=== PATIENT | male | born 1965 | race Hispanic/Latino ===

== ENCOUNTER 2016-12-26 05:22 | Emergency (ER) | payer MEDICAID ==
[2016-12-26 05:24] VITALS: BMI 23.4
--- NOTE | 2016-12-26 05:42 | C.PDOC ---
History Of Present Illness Patient BIBA for evaluation. He has no physical complaints at this time, and denies drug/alcohol use today. Time Seen by Provider: 12/26/16 05:35 Chief Complaint (Nursing): Medical Clearance History Per: Patient, EMS History/Exam Limitations: no limitations Past Medical History Reviewed: Historical Data, Nursing Documentation, Vital Signs Vital Signs: Last Vital Signs Temp 97.8 F 12/26/16 05:40 Pulse 92 H 12/26/16 09:04 Resp 20 12/26/16 09:04 BP 132/87 12/26/16 09:04 Pulse Ox 98 01/10/17 08:10 - Medical History PMH: Arthritis, Asthma, Back Problems, COPD, Dementia, Depression, Fractures, HTN, Hypothyroidism, Paranoia, Schizophrenia, Seizures Surgical History: Back Surgery (2010, spinal surgery) - [facility] Procedures ALCOHOL DETOXIFICATION (11/17/14) INJECT/INFUSE NEC (01/09/15) PSYCHIA INTERV/EVAL NEC (02/25/14) TETANUS TOXOID ADMINIST (12/18/14) VENOUS CATHETERIZATION NEC (11/29/14) Family History: States: No Known Family Hx - Social History Hx Tobacco Use: Yes Hx Alcohol Use: Yes Hx Substance Use: No - Immunization History Hx Tetanus Toxoid Vaccination: Yes (12/18/14) Hx Influenza Vaccination: No Hx Pneumococcal Vaccination: No Review Of Systems Except As Marked, All Systems Reviewed And Found Negative. Constitutional: Negative for: Fever, Chills Cardiovascular: Negative for: Chest Pain Respiratory: Negative for: Shortness of Breath Gastrointestinal: Negative for: Nausea, Vomiting, Abdominal Pain, Diarrhea Physical Exam - Physical Exam Appears: Non-toxic, No Acute Distress, Unkempt Head: Normacephalic Eye(s): bilateral: Normal Inspection Oral Mucosa: Moist Cardiovascular: Rhythm Regular Respiratory: Normal Breath Sounds, No Rales, No Rhonchi, No Wheezing Neurological/Psych: Oriented x3 ED Course And Treatment O2 Sat by Pulse Oximetry: 98 (RA) Pulse Ox Interpretation: Normal Progress Note: Patient has complaints, and his wheelchair was brought to ED by EMS. He is AAOx3. Patient will be discharged at this time. Disposition Counseled Patient/Family Regarding: Diagnosis, Need For Followup - Disposition Referrals: [facility] at [facility] [Outside] Disposition: HOME/ ROUTINE Disposition Time: 06:00 Condition: STABLE Print Language: LIBERIAN - POA Present On Arrival: None - Clinical Impression Clinical Impression: Homeless
[2016-12-26 05:46] VITALS: PULSE 92; RESP 20; TEMP 97.8; O2SAT 98
[2016-12-26 09:06] VITALS: BP 132/87
== END 2016-12-26 09:05 | disposition home or self-care (01) ==
LOC: C.ER 05:22
DX: Z04.8 Encounter for examination and observation for other specified reasons (principal); F10.129 Alcohol abuse with intoxication, unspecified; Y90.9 Presence of alcohol in blood, level not specified; Z76.5 Malingerer [conscious simulation]; Z59.0 Homelessness

== ENCOUNTER 2016-12-27 17:37 | Inpatient (IN) | payer MEDICAID ==
[2016-12-27 17:38] VITALS: BMI 23.4
--- NOTE | 2016-12-27 18:27 | C.PDOC ---
History Of Present Illness 54 y/o male well known to ED< just discharged one hour ago, kobe from [facility]. per triage, pt was being unruly. pt sts he was brought here because too cold out side. pt denies any physical complaints at this time. (Gila Khanna) Time Seen by Provider: 12/27/16 17:49 Chief Complaint (Nursing): Medical Clearance Past Medical History Reviewed: Historical Data, Nursing Documentation, Vital Signs - Medical History PMH: Arthritis, Asthma, Back Problems, COPD, Dementia, Depression, Fractures, HTN, Hypothyroidism, Paranoia, Schizophrenia, Seizures Denies: Chronic Kidney Disease Surgical History: Back Surgery (2011, spinal surgery) Family History: States: Unknown Family Hx - Social History Hx Tobacco Use: Yes Hx Alcohol Use: Yes Hx Substance Use: No - Immunization History Hx Tetanus Toxoid Vaccination: Yes (12/18/14) Hx Influenza Vaccination: No Hx Pneumococcal Vaccination: No Vital Signs: Last Vital Signs Temp 98.1 F 12/27/16 18:04 Pulse 81 12/28/16 01:35 Resp 20 12/28/16 01:35 BP 141/61 12/28/16 01:35 Pulse Ox 97 12/28/16 01:35 - [facility] Procedures ALCOHOL DETOXIFICATION (11/17/14) INJECT/INFUSE NEC (01/09/15) PSYCHIA INTERV/EVAL NEC (02/25/14) TETANUS TOXOID ADMINIST (12/18/14) VENOUS CATHETERIZATION NEC (11/29/14) Review Of Systems Constitutional: Negative for: Fever, Chills Cardiovascular: Negative for: Chest Pain, Palpitations Respiratory: Negative for: Cough, Shortness of Breath Gastrointestinal: Negative for: Nausea, Vomiting, Abdominal Pain, Diarrhea Genitourinary: Negative for: Dysuria, Frequency, Incontinence Skin: Negative for: Rash Neurological: Negative for: Weakness, Numbness Physical Exam - Physical Exam Appears: Non-toxic, No Acute Distress Skin: Normal Color, Warm, Dry Head: Atraumatic, Normacephalic Eye(s): bilateral: Normal Inspection Lips: Normal Appearing Neck: Normal Chest: Symmetrical, No Deformity, No Tenderness Cardiovascular: Rhythm Regular, No Murmur Respiratory: Normal Breath Sounds, No Rales, No Rhonchi, No Wheezing Gastrointestinal/Abdominal: Bowel Sounds, Soft, No Tenderness Extremity: Bilateral: No Pedal Edema, Normal Color And Temperature Neurological/Psych: Oriented x3, Normal Speech, Normal Cognition, Normal Motor, Normal Sensation ED Course And Treatment O2 Sat by Pulse Oximetry: 100 Medical Decision Making Medical Decision Making: pt bp is 88/61, pt not lightheaded or dizzy, bundled under several blankets, shouting when they are removed. in no distress, alert, awake and coherent. ( Gila Kahnna) Disposition - Disposition Disposition Time: 18:42 - Disposition Condition: STABLE - Clinical Impression Clinical Impression: Homeless Physician Patient Turnover Patient Signed Over To: Garrett Cantu Addendum Addendum: 12/28/16 01:45 vitals stable, no complaints (Garrett Cantu)
[2016-12-28 17:02] LABS: BASO % 0.3 % (0.0-2.0); EOS # 0.2 K/uL (0.0-0.7); EOS % 2.6 % (0.0-4.0); HEMATOCRIT 36.3 % (35.0-51.0); LYMPH # 1.3 K/uL (1.0-4.3); MEAN CELL VOLUME 87.3 fL (80.0-94.0); MEAN CORPUSCULAR HEMOGLOBIN 29.8 pg (27.0-31.0); MEAN CORPUSCULAR HGB CONC 34.2 g/dL (33.0-37.0); MEAN PLATELET VOLUME 6.9 fL (7.2-11.7); MONO # 0.5 K/uL (0.0-0.8); MONO % 7.3 % (0.0-10.0); NRBC % 0.1 % (0.0-2.0); RED CELL DISTRIBUTION WIDTH 13.8 % (11.5-14.5); WHITE BLOOD COUNT 6.7 K/uL (4.8-10.8)
[2016-12-28 17:12] LABS: CHLORIDE 94 mmol/L (98-107); POTASSIUM 3.8 mmol/L (3.6-5.2); SODIUM 135 mmol/L (132-148)
[2016-12-28 17:14] LABS: ALB/GLOB RATIO 1.1 (1.0-2.1); ALKALINE PHOSPHATASE 88 U/L (38-126); AST/SGOT 16 U/L (17-59); BILIRUBIN,TOTAL 0.4 mg/dL (0.2-1.3); CARBON DIOXIDE 29 mmol/L (22-30); GFR AFRICAN-AMERICAN > 60; TOTAL PROTEIN 6.6 g/dL (6.3-8.3)
[2016-12-28 17:15] LABS: ALT/SGPT 29 U/L (21-72); BLOOD UREA NITROGEN 11 mg/dL (9-20); CALCIUM 8.4 mg/dl (8.6-10.4); GLUCOSE,RANDOM 98 mg/dL (75-110); MAGNESIUM 1.7 mg/dL (1.6-2.3); PHOSPHOROUS 4.1 mg/dL (2.5-4.5)
[2016-12-28 17:45] LABS: THYROID STIMULATING HORMONE 0.94 mIU/L (0.46-4.68)
[2016-12-28 17:57] LABS: RBC URINE 1 /hpf (0-3); URINE BILIRUBIN NEGATIVE (NEGATIVE); URINE BLOOD NEGATIVE (NEGATIVE); URINE COLOR Yellow (YELLOW); URINE GLUCOSE (UA) NORMAL (Normal); URINE KETONE NEGATIVE (NEGATIVE); URINE LEUKOCYTE ESTERASE NEG Leu/uL (Negative); URINE PROTEIN NEGATIVE (NEGATIVE); WBC URINE 6 /hpf (0-5)
--- NOTE | 2016-12-28 19:02 | CT ---
EXAM: CT Head Without Intravenous Contrast. CLINICAL HISTORY: 51 years old, male; Pain; Headache; Headache not specified; Additional info: HX ETOH, not walking TECHNIQUE: Axial computed tomography images of the head/brain without intravenous contrast. This CT exam was performed using one or more of the following dose reduction techniques: automated exposure control, adjustment of the mA and/or kV according to patient size, and/or use of iterative reconstruction technique. EXAM DATE/TIME: 12/28/2016 4:48 PM COMPARISON: CT - HEAD W/O CONTRAST 12/04/2015 3:11:34 PM FINDINGS: Brain: There is dilatation of sulci gyri and ventricles. There is no midline shift. There is decreased attenuation in periventricular white matter. There are no focal masses. There are no focal hemorrhages. There is encephalomalacia in the occipital lobes bilaterally. 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 There is right frontotemporal dural thickening, unchanged. Ivey-white differentiation is visualized. Ventricles: See above Bones/joints: Bones: There is an old right frontotemporal craniotomy. Soft tissues: unremarkable Sinuses: There is ethmoid and sphenoid sinusitis. There is mucoperiosteal thickening in the left maxillary sinus.. Mastoid air cells: Ears and mastoids: Mastoids are poorly pneumatized. No ears are unremarkable. Orbits: Orbital contents are unremarkable. 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
--- NOTE | 2016-12-28 19:18 | CT ---
EXAM: CT Lumbar Spine Without Intravenous Contrast. CLINICAL HISTORY: 51 years old, male; Pain; Low back pain; Additional info: Urinary incontinence, not walking TECHNIQUE: Axial computed tomography images of the lumbar spine without intravenous contrast. This CT exam was performed using one or more of the following dose reduction techniques: automated exposure control, adjustment of the mA and/or kV according to patient size, and/or use of iterative reconstruction technique. Coronal and sagittal reformatted images were created and reviewed. COMPARISON: There are no prior studies for comparison. Exam Date/Time: 12/28/2016 4:49 PM FINDINGS: Vertebrae: 5 lumbar vertebral bodies are normal in height and alignment. There are no vertebral body or posterior element fractures. There is mild narrowing of the T12-L1 disc space posteriorly with mild disc bulging. Remaining lumbar disc spaces are normal in height. There is minimal disc space calcification L1-2, L3-4 and L4-5. There are small Schmorl's nodes at multiple levels. There are small degenerative osteophytes at multiple levels.Spinous processes align in the expected fashion. Facet joints align anatomically. There is mild osteopenia Sacrum/coccyx: Sacrum is intact. Sacroiliac joints are patent. Discs/spinal canal/neural foramina: See above Soft tissues: Psoas and paraspinous muscles are symmetric. Vasculature: There are vascular calcifications. IMPRESSION: Osteopenia and degenerative change, no fracture
--- NOTE | 2016-12-28 19:32 | CT ---
EXAM: CT Thoracic Spine Without Intravenous Contrast. CLINICAL HISTORY: 51 years old, male; Pain; Pain in thoracic spine; Other: Not specified; Additional info: Back pain, HX prior spinal SX, trouble walking TECHNIQUE: Axial computed tomography images of the thoracic spine without intravenous contrast. This CT exam was performed using one or more of the following dose reduction techniques: automated exposure control, adjustment of the mA and/or kV according to patient size, and/or use of iterative reconstruction technique. Coronal and sagittal reformatted images were created and reviewed. EXAM DATE/TIME: 12/28/2016 5:22 PM COMPARISON: Prior images are not available for review. FINDINGS: Vertebrae: T1-T7 vertebral bodies are normal in height. There is narrowing of the T1/T2 disc space with vertebral body fusion. There is facet joint fusion T1/T2. There is mild narrowing of the disc spaces T2/T3 to T6/T7. There is mild superior endplate deformity at T5 and T6. There is compression fracture at T8 with vertebral body wedging. There are no retropulsed fragments. Posterior elements are intact. There is deformity of the T78 disc space. There is posterior disc space narrowing T8/T9. T9 and T10 are normal in height. There is wedge compression fracture at T11. There is deformity of the T10/T11 disc space. T11/T12 disc space is mildly narrowed posteriorly. There is minimal retropulsion. Posterior arch is intact. T12 and L1 vertebral bodies are normal in height. Posterior elements are intact. Facet joints align anatomically. Spinous processes align in the expected fashion. There are small Schmorl's nodes at multiple levels. Bony structures are osteopenic. Discs/spinal canal/neural foramina: See above Soft tissues: There are mild atelectatic changes in visualized portions of the lungs. Heart cannot be adequately evaluated. Paraspinous soft tissues are unremarkable. Other findings: There is mild gibbus deformity. IMPRESSION: Compression fractures T8 and T11, age indeterminate; minimal endplate deformity T5 and T6; T1/2 fusion
--- NOTE | 2016-12-28 20:04 | CT ---
EXAM: CT Cervical Spine Without Intravenous Contrast. CLINICAL HISTORY: 51 years old, male; Pain; Neck pain; Additional info: Neck pain, HX spinal SX TECHNIQUE: Axial computed tomography images of the cervical spine without intravenous contrast. This CT exam was performed using one or more of the following dose reduction techniques: automated exposure control, adjustment of the mA and/or kV according to patient size, and/or use of iterative reconstruction technique. Coronal and sagittal reformatted images were created and reviewed. EXAM DATE/TIME: 12/28/2016 5:22 PM COMPARISON: CT - CERVICAL SPINE W/O CON 12/18/2014 3:52:14 PM FINDINGS: Artifacts: Motion artifact degrades image quality. Vertebrae: There is reversal of the cervical lordosis with marked exaggeration of the reversed curve. There is no prevertebral soft tissue swelling. There is absence of the posterior arch of C1. There is narrowing of the predental space. There is fusion of the C2 and C3 vertebral bodies. There is narrowing of the C3-4 disc space. There is mild wedging C4 and C5 with anterior disc space narrowing. There are bridging osteophytes C4/C5/C6. There is posterior fusion C4/C5/C6 C7, T1, T2, T3 and T4 are normal in height. There is fusion of the T1-2 vertebral bodies and facet joints. Discs/spinal canal/neural foramina: See above. Soft tissues: See above. Hypopharynx: Hypopharynx is markedly distended. Subglottic trachea is normal in caliber. Thyroid: Thyroid is unremarkable Lung apices: Lung apices are clear Other findings: Bony structures are osteopenic. IMPRESSION: Degenerative and postsurgical change, no acute osseous abnormality
[2016-12-29 07:06] VITALS: RESP 20
--- NOTE | 2016-12-29 12:54 | CP.PCM.HP ---
<Jorgito Arce - Last Filed: 12/29/16 16:44> History of Present Illness - History of Present Illness History of Present Illness: This is a 51 yo M with PMH of arthritis, chronic back pain and alcoholism that presented to the ED with a chief complaint of being too cold. Pt is well known to the ED. Pt states that he is handicapped from his chronic back issues as well and is not able to walk on his own. He says that he feels very unstable on his feet. This back pain is not a new issue. He has no other complaints. He states his last drink was about 2 days ago. He denies any current withdrawal symptoms. Denies fevers, chills, chest pain, palpitations, nausea, vomiting, numbness or tingling. PMD: none PMH: arthritis, chronic back pain, Etoh abuse PSH: back surgery Home meds: none Allergies: NKDA FH: denies SH: admits to tobacco use and Etoh abuse, denies any other drugs Present on Admission - Present on Admission Any Indicators Present on Admission: No Review of Systems - Constitutional Constitutional: absent: Chills, Fever - Cardiovascular Cardiovascular: absent: Chest Pain, Palpitations - Respiratory Respiratory: absent: Cough, Dyspnea - Gastrointestinal Gastrointestinal: absent: Abdominal Pain, Nausea, Vomiting - Genitourinary Genitourinary: absent: Urinary Frequency, Urinary Urgency - Musculoskeletal Musculoskeletal: Muscle Weakness. absent: Muscle Cramps - Integumentary Integumentary: absent: Pruritus, Rash - Neurological Neurological: absent: Numbness, Tingling Past Patient History - Infectious Disease Hx of Infectious Diseases: None - Tetanus Immunizations Tetanus Immunization: Unknown - Past Medical History & Family History Past Medical History?: Yes - Past Social History Smoking Status: Light Smoker < 10 Cigarettes Daily - CARDIAC Hx Hypertension: Yes - PULMONARY Hx Asthma: Yes Hx Chronic Obstructive Pulmonary Disease (COPD): Yes - NEUROLOGICAL Hx Dementia: Yes Hx Seizures: Yes - HEENT Hx HEENT Problems: No - RENAL Hx Chronic Kidney Disease: No - ENDOCRINE/METABOLIC Hx Hypothyroidism: Yes - HEMATOLOGICAL/ONCOLOGICAL Hx Cancer: No - INTEGUMENTARY Hx Dermatological Problems: Yes Other/Comment: Scab formation on scalp - MUSCULOSKELETAL/RHEUMATOLOGICAL Hx Arthritis: Yes Hx Fractures: Yes - GASTROINTESTINAL Hx Gastrointestinal Disorders: No - GENITOURINARY/GYNECOLOGICAL Hx Genitourinary Disorders: Yes Hx Incontinence: Yes - PSYCHIATRIC Hx Depression: Yes Hx Paranoia: Yes Hx Schizophrenia: Yes Hx Substance Use: No - SURGICAL HISTORY Hx Surgeries: Yes - ANESTHESIA Hx Anesthesia: Yes Hx Anesthesia Reactions: No Meds Allergies/Adverse Reactions: Allergies Allergy/AdvReac Type Severity Reaction Status Date / Time No Known Allergies Allergy Verified 12/26/16 17:41 Physical Exam - Constitutional Appears: Non-toxic, Chronically Ill - Head Exam Head Exam: ATRAUMATIC, NORMOCEPHALIC - Eye Exam Eye Exam: Normal appearance Pupil Exam: PERRL - ENT Exam ENT Exam: Mucous Membranes Moist - Respiratory Exam Respiratory Exam: Clear to Auscultation Bilateral, NORMAL BREATHING PATTERN - Cardiovascular Exam Cardiovascular Exam: +S1, +S2 - GI/Abdominal Exam GI & Abdominal Exam: Normal Bowel Sounds, Soft - Extremities Exam Extremities exam: Positive for: normal capillary refill, normal inspection - Back Exam Back exam: NORMAL INSPECTION - Neurological Exam Neurological exam: Alert, Oriented x3 - Skin Skin Exam: Dry, Warm Results - Vital Signs Recent Vital Signs: Last Vital Signs Temp 97.9 F 12/29/16 06:30 Pulse 78 12/29/16 06:30 Resp 20 12/29/16 06:30 BP 113/66 12/29/16 06:30 Pulse Ox 100 12/29/16 06:30 - Labs Result Diagrams: 12/28/16 16:58 12/28/16 16:58 Assessment & Plan - Assessment and Plan (Free Text) Assessment: This is a 51 yo M with unsteady gait due to chronic back problems Plan: Unsteady gait - needs walker at baseline - CT of head, cervical, thoracic and lumbar spine (12/28) - no acute findings - PT/OT eval and treat - jail eval Dementia - possibly Etoh abuse related - Psych (Dat) consulted for competency assessment - help appreciated PPx - Lovenox for DVT ppx - Protonix for GI ppx <Shannon Grider V - Last Filed: 12/30/16 07:59> Results - Vital Signs Recent Vital Signs: Last Vital Signs Temp 98.3 F 12/29/16 18:11 Pulse 76 12/29/16 18:11 Resp 20 12/29/16 18:11 BP 105/68 12/29/16 18:11 Pulse Ox 99 12/29/16 18:11 - Labs Result Diagrams: 12/28/16 16:58 12/28/16 16:58 Assessment & Plan (1) Gait instability Status: Acute Comment: PT/OT eval. Wheelchair bound. TSH: normal (2) Homeless Status: Chronic Comment: Patient reports he was cold and lives out on the streets (3) Alcohol use Status: Chronic Comment: Prior hx of alcohol use noted in EMR record. Patient has no tremors, no convulsion at bedside. (4) Encounter for competency evaluation Status: Acute Comment: Psych (Dr. Daugherty)- consulted and seen patient in the ED. Patient has insight and is psychiatrically stable for discharge (5) Prophylactic measure Status: Acute Comment: Lovenox 40mg subq daily. Protonix 40mg IV q daily. NS 100cc/hr for mainteance fluids. Case management on the case for placement. PT/OT eval. Patient is bedbound and wheelchair bound. Discussed with wound care nurse given mild erythema noted over buttock area - Assessment and Plan (Free Text) Assessment: This is late computer entry for 12/29/16. Patient seen in [facility] in the ED on 12/30/15. Patient seen and case discussed with day-time resident. Patient will not allow me to do a full physical examination. However, from what I can assess he is an unkempt gentleman, speaks in lithuanian, lung sound: good air exchange and heart: S1,S2 regular rate and rhythm, right upper extremity is mild contracted and distort which may reports he "broke" his upper extremity "long long time ago" (patient had a CT of that extremity in December 2016 which shows no fracture but dislocation), erythema located around gluteal which appear superifical, no observed edema, poor hygiene in general; smelled like urine in the room. This is a social admission. patient has history of gait dysfunction, requiring wheelchair, and is bed bound. Patient is homeless. Patient is requesting for jail placement, which is the first time he is asking and has allowed blood work; per ED staff, he usually does not. Patient has history of alcohol use, depression, malingering, and multiple psych disorders as review of EMR. Psych (Dr. Daugherty) consulted on the case; patient is psychiatrically stable for discharge. Wound care is consulted for erythema over back side. Patient labs appear normal and vitals are stable. Patient does not appear to be actively withdrawing and no visible tremors suggestive of acute alcohol use. PT/OT eval placed Patient ordered for maintenance IV fluids, GI ppx, and DVT ppx. Patient is awaiting placement. Case management already on board. Discussed case with Dr. Mcdaniel, ED, Dr. Emmanuel, ED, Case management, and Dr. Camacho, Director. Attending/Attestation - Attestation I have personally seen and examined this patient.: Yes I have fully participated in the care of the patient.: Yes I have reviewed all pertinent clinical information: Yes
--- NOTE | 2016-12-29 13:04 | PCM.PSYCH ---
Initial Psychiatric Evaluation - Initial Psychiatric Evaluation Type of Admission: Voluntary Legal Status: Capacity Chief Complaint (in patient's own words): I came to get help History of Present Illness and Precipitating Events: This is a 51 year-old male who is currently homeless and unemployed with a long history of alcohol dependence was consulted because of history of alcohol abuse. Patient states that he has a long history of drinking. Since past few months he is drinking heavily. The patient reports of drinking 1-3 pints of vodka, and few beers on a daily basis. Yesterday he consumed 1-3 16oz beers, started becoming anxious, so came to the hospital to get help. Patient reports of anxiety, irritability and agitation but denies any withdrawal symptoms. Patient denies any feelings of hopelessness or helplessness and denies any suicidal ideation or homicidal ideation. He denies any racing of thoughts or flight of ideas. He also denies any auditory or visual hallucinations or any psychotic symptoms. Denies any other substance abuse. Past medical history None Current Medications: Active Medications Generic Name Dose Route Start Last Admin Trade Name Freq PRN Reason Stop Dose Admin Enoxaparin Sodium 40 mg 12/30/16 10:00 Lovenox SC DAILY DION Sodium Chloride 1,000 mls @ 100 mls/hr 12/29/16 12:45 Sodium Chloride 0.9% IV .Q10H DION Pantoprazole Sodium 40 mg 12/30/16 10:00 Protonix Inj IVP DAILY DION Past Psychiatric History - Past Psychiatric History Previous Treatment History: None Pertinent Medical Hx (Current Medical&Sleep Prob, Allergies): Allergies Allergy/AdvReac Type Severity Reaction Status Date / Time No Known Allergies Allergy Verified 12/26/16 17:41 No Known Home Med 02/18/16 Review of Systems - Review of Systems All systems: reviewed and no additional remarkable complaints except - Psychiatric Psychiatric: Anxiety, Irritability Mental Status Examination - Personal Presentation Personal Presentation: Looks stated age - Affect Affect: Constricted - Motor Activity Motor Activity: Calm - Reliability in Providing Information Reliability in Providing Information: Good - Speech Speech: Organized - Mood Mood: Anxious - Formal Thought Process Formal Thought Process: No Impairment - Obsessions/Compulsions Obsessions: No Compulsions: No - Cognitive Functions Orientation: Person, Place, Situation, Time Sensorium: Alert Attention/Concentration: Attentive Abstract Thinking: [place] Estimate of Intelligence: Below average Judgement: Imparied, as evidence by: Poor judgement, Intact, as evidence by: Insight regarding need for hospitalization - Risk Risk: Diminished functioning - Strength & Assets Inventory Strength & Assets Inventory: Life experience - Limitations Limitations: Living alone DSM 5 DX - DSM 5 DSM 5 Diagnosis: Alcohol use disorder severe - Recommended/Plan of Treatment Treatment Recommendations and Plan of Treatment: Alcohol use disorder severe Patient is psychiatrically stable to be discharged - Smoking Cessation Smoking Cessation Initiated: No
[2016-12-29] MEDS: Sodium Chloride 0.9% 1,000 ML IV SCH (17:57)
[2016-12-30] MEDS: Enoxaparin 40 mg Syringe SC SCH (09:34)
[2016-12-30] MEDS: Sodium Chloride 0.9% 1,000 ML IV SCH ×2 (09:35→18:45)
--- NOTE | 2016-12-30 14:12 | CP.PCM.PN ---
<Jorgito Arce - Last Filed: 12/30/16 14:03> Subjective - Date & Time of Evaluation Date of Evaluation: 12/30/16 Time of Evaluation: 14:03 - Subjective Subjective: PGY-1 note for medicine service Pt seen and examined at bedside. Pt observed to be resting comfortably. Pt refused physical exam. Objective - Vital Signs/Intake and Output Vital Signs (last 24 hours): Temp Pulse Resp BP Pulse Ox 98.1 F 71 20 106/62 97 12/30/16 00:00 12/30/16 00:00 12/30/16 00:00 12/30/16 00:00 12/30/16 00:00 Intake and Output: 12/30/16 12/30/16 06:59 18:59 Intake Total 300 Balance 300 - Medications Medications: Current Medications Enoxaparin Sodium (Lovenox) 40 mg SC DAILY [facility] Last Admin: 12/30/16 09:34 Dose: Not Given Sodium Chloride (Sodium Chloride 0.9%) 1,000 mls @ 100 mls/hr IV .Q10H [facility] Last Admin: 12/30/16 09:35 Dose: Not Given Influenza Virus Vaccine (Afluria) 45 mcg IM .ONCE ONE Stop: 01/01/17 10:01 Pantoprazole Sodium (Protonix Inj) 40 mg IVP DAILY [facility] Last Admin: 12/30/16 09:35 Dose: Not Given - Constitutional Appears: Other (Pt refused physical exam and evaluation) Assessment and Plan - Assessment and Plan (Free Text) Assessment: Social issues - gait dysfunction and requires a wheelchair - awaiting bed placement in longterm. Discharge order in. - PT/OT eval placed, refusing treatment Hx of Etoh abuse - No signs of withdrawal, will monitor PPX - protonix - Lovenox - IVF <Shannon Grider V - Last Filed: 12/30/16 19:10> Objective - Vital Signs/Intake and Output Vital Signs (last 24 hours): Temp Pulse Resp BP Pulse Ox 98.1 F 71 20 106/62 97 12/30/16 00:00 12/30/16 00:00 12/30/16 00:00 12/30/16 00:00 12/30/16 00:00 Intake and Output: 12/30/16 12/31/16 18:59 06:59 Intake Total 200 Balance 200 - Medications Medications: Current Medications Enoxaparin Sodium (Lovenox) 40 mg SC DAILY [facility] Last Admin: 12/30/16 09:34 Dose: Not Given Sodium Chloride (Sodium Chloride 0.9%) 1,000 mls @ 100 mls/hr IV .Q10H [facility] Last Admin: 12/30/16 09:35 Dose: Not Given Influenza Virus Vaccine (Afluria) 45 mcg IM .ONCE ONE Stop: 01/01/17 10:01 Pantoprazole Sodium (Protonix Inj) 40 mg IVP DAILY [facility] Last Admin: 12/30/16 09:35 Dose: Not Given Assessment and Plan (1) Gait instability Status: Acute (2) Homeless Status: Chronic (3) Alcohol use Status: Chronic (4) Encounter for competency evaluation Status: Acute (5) Prophylactic measure Status: Acute Attending/Attestation - Attestation I have personally seen and examined this patient.: Yes I have fully participated in the care of the patient.: Yes I have reviewed all pertinent clinical information, including history, physical exam and plan: Yes Notes (Text): Patient seen, examined and case discussed with day-time resident. Patient actually refuses physical examination and refuses to be seen by me or the resident. patient reports he would like to sleep and is cold. Patient is refusing IV maintenance fluids. Vitals remained stable. Patient is pending placement for longterm. Discharge order is placed. patient is medically stable for discharge pending bed availability. Assessment/Plan (1) Gait instability Status: Acute Comment: PT/OT eval. Wheelchair bound. TSH: normal (2) Homeless Status: Chronic Comment: Patient reports he was cold and lives out on the streets (3) Alcohol use Status: Chronic Comment: Prior hx of alcohol use noted in EMR record. Patient has no tremors, no convulsion at bedside. (4) Encounter for competency evaluation Status: Acute Comment: Psych (Dr. Daugherty)- consulted and seen patient in the ED. Patient has insight and is psychiatrically stable for discharge (5) Prophylactic measure Status: Acute Comment: Lovenox 40mg subq daily. Protonix 40mg IV q daily. NS 100cc/hr for mainteance fluids. Case management on the case for placement. PT/OT eval. Patient is bedbound and wheelchair bound. Discussed with wound care nurse given mild erythema noted over buttock area on admission. patient refuses medications and IV fluids.
[2016-12-31] MEDS: Enoxaparin 40 mg Syringe SC SCH (10:51)
--- NOTE | 2016-12-31 11:13 | CP.PCM.PN ---
<Jorgito Arce - Last Filed: 12/31/16 11:08> Subjective - Date & Time of Evaluation Date of Evaluation: 12/31/16 Time of Evaluation: 11:08 - Subjective Subjective: PGY-1 note for medicine service Pt seen and examined at bedside. No overnight events per staff, however, continues to be unruly at times with staff as well. Denies any fevers, chest pain, nausea or vomiting. Objective - Vital Signs/Intake and Output Vital Signs (last 24 hours): Temp Pulse Resp BP Pulse Ox 98.1 F 76 20 106/71 97 12/31/16 07:47 12/31/16 07:47 12/31/16 07:47 12/31/16 07:47 12/31/16 07:47 Intake and Output: 12/31/16 12/31/16 06:59 18:59 Intake Total 540 Balance 540 - Medications Medications: Current Medications Enoxaparin Sodium (Lovenox) 40 mg SC DAILY [facility] Last Admin: 12/31/16 10:51 Dose: Not Given Sodium Chloride (Sodium Chloride 0.9%) 1,000 mls @ 100 mls/hr IV .Q10H [facility] Last Admin: 12/30/16 18:45 Dose: Not Given Influenza Virus Vaccine (Afluria) 45 mcg IM .ONCE ONE Stop: 01/01/17 10:01 Pantoprazole Sodium (Protonix Inj) 40 mg IVP DAILY [facility] Last Admin: 12/31/16 10:50 Dose: 40 mg - Constitutional Appears: Non-toxic, No Acute Distress, Chronically Ill - Head Exam Head Exam: ATRAUMATIC, NORMOCEPHALIC - Eye Exam Eye Exam: Normal appearance Pupil Exam: PERRL - ENT Exam ENT Exam: Mucous Membranes Moist - Respiratory Exam Respiratory Exam: Clear to Ausculation Bilateral, NORMAL BREATHING PATTERN - Cardiovascular Exam Cardiovascular Exam: +S1, +S2 - Extremities Exam Extremities Exam: absent: Normal Inspection Additional comments: Right arm chronically contracted. NO changes - Neurological Exam Neurological Exam: Alert, Awake - Skin Skin Exam: Dry, Warm Assessment and Plan - Assessment and Plan (Free Text) Assessment: Social issues - gait dysfunction and requires a wheelchair - awaiting bed placement in senior living. Discharge order in. - PT/OT eval placed, refusing treatment Hx of Etoh abuse - No signs of withdrawal, will monitor Encounter for Competency eval - Psych (Dr. Daugherty)- consulted and seen patient in the ED. Patient has insight and is psychiatrically stable for discharge PPX - protonix - Lovenox - IVF <Shannon Grider V - Last Filed: 01/01/17 10:07> Objective - Vital Signs/Intake and Output Vital Signs (last 24 hours): Temp Pulse Resp BP Pulse Ox 98.0 F 70 20 104/67 98 12/31/16 15:00 12/31/16 15:00 12/31/16 15:00 12/31/16 15:00 12/31/16 15:00 Intake and Output: 01/01/17 01/01/17 06:59 18:59 Intake Total 120 Balance 120 - Medications Medications: Current Medications Enoxaparin Sodium (Lovenox) 40 mg SC DAILY [facility] Last Admin: 12/31/16 10:51 Dose: Not Given Sodium Chloride (Sodium Chloride 0.9%) 1,000 mls @ 100 mls/hr IV .Q10H [facility] Last Admin: 01/01/17 00:48 Dose: Not Given Pantoprazole Sodium (Protonix Inj) 40 mg IVP DAILY [facility] Last Admin: 12/31/16 10:50 Dose: 40 mg Assessment and Plan (1) Gait instability Status: Acute (2) Homeless Status: Chronic (3) Alcohol use Status: Chronic (4) Encounter for competency evaluation Status: Acute (5) Prophylactic measure Status: Acute Attending/Attestation - Attestation I have personally seen and examined this patient.: Yes I have fully participated in the care of the patient.: Yes I have reviewed all pertinent clinical information, including history, physical exam and plan: Yes Notes (Text): This is late computer entry for 12/31/16. patient seen, examined and case discussed with day-time resident. Patient seen at bedside. Will allow for physical exam. Patient denies acute complaints. Patient would like to go senior living. Discussed with wound care nurse, Dilan, patient has erythema secondary to urinary incontinence; recommendations made and applied. Discussed case management, patient is pending authorization for senior living placement. Vitals remained stable. Patient is pending placement for senior living. Discharge order is placed. patient is medically stable for discharge pending bed availability. Assessment/Plan (1) Gait instability Status: Acute Comment: PT/OT eval-->recommended for KARLIE Wheelchair bound. TSH: normal (2) Homeless Status: Chronic Comment: Patient reports he was cold and lives out on the streets (3) Alcohol use Status: Chronic Comment: Prior hx of alcohol use noted in EMR record. Patient has no tremors, no convulsion at bedside. (4) Encounter for competency evaluation Status: Acute Comment: Psych (Dr. Daugherty)- consulted and seen patient in the ED. Patient has insight and is psychiatrically stable for discharge (5) Prophylactic measure Status: Acute Comment: Lovenox 40mg subq daily. Protonix 40mg IV q daily. NS 100cc/hr for maintenance fluids. Case management on the case for placement. PT/OT completed Patient is bedbound and wheelchair bound. Wound care on board Per wound care: wOUND CARE NOTE-ASKED TO ASSESS PATIENT WHO PRESENTS TO UNIT WITH REDNESS TO BUTTOCKS REGION. ASSESSMENT REVEALED, PATIENT IS INCONTINENT OF URINE. RECOMMENDING TO APPLY ALOEVESTA PROTECTIVE OINTMENT TO ENTIRE SACRAL REGION WELL BILATERAL GROIN TO OPTIMIZE PROTECTION AND HELP WITH HEALING. YAMILEX OF 13; AT CONTINUED RISK FOR SKIN BREAKDOWN. MUST REPOSITION FREQUENTLY TO OPTIMIZE OFFLOADING. patient refuses medications and IV fluids during various points of hospitalization.
[2017-01-01] MEDS: Sodium Chloride 0.9% 1,000 ML IV SCH (00:48)
--- NOTE | 2017-01-01 09:58 | CP.PCM.PN ---
Subjective - Date & Time of Evaluation Date of Evaluation: 01/01/17 Time of Evaluation: 09:55 - Subjective Subjective: PGY-1 note for medicine service Pt seen and examined at bedside. No overnight events. Pt refused vital signs this morning and exam. Pt just waiting on authorization to go to snf before discharge Objective - Vital Signs/Intake and Output Vital Signs (last 24 hours): Temp Pulse Resp BP Pulse Ox 98.0 F 70 20 104/67 98 12/31/16 15:00 12/31/16 15:00 12/31/16 15:00 12/31/16 15:00 12/31/16 15:00 Intake and Output: 01/01/17 01/01/17 06:59 18:59 Intake Total 120 Balance 120 - Medications Medications: Current Medications Enoxaparin Sodium (Lovenox) 40 mg SC DAILY [facility] Last Admin: 12/31/16 10:51 Dose: Not Given Sodium Chloride (Sodium Chloride 0.9%) 1,000 mls @ 100 mls/hr IV .Q10H [facility] Last Admin: 01/01/17 00:48 Dose: Not Given Influenza Virus Vaccine (Afluria) 45 mcg IM .ONCE ONE Stop: 01/01/17 10:01 Pantoprazole Sodium (Protonix Inj) 40 mg IVP DAILY [facility] Last Admin: 12/31/16 10:50 Dose: 40 mg - Constitutional Appears: Other (refused exam) Assessment and Plan - Assessment and Plan (Free Text) Assessment: Social issues - gait dysfunction and requires a wheelchair - awaiting bed placement in snf. Discharge order in. - PT/OT eval placed, refusing treatment Hx of Etoh abuse - No signs of withdrawal, will monitor Encounter for Competency eval - Psych (Dr. Daugherty)- consulted and seen patient in the ED. Patient has insight and is psychiatrically stable for discharge PPX - protonix - Lovenox - IVF
[2017-01-01] MEDS ORDERED: Pneumococcal 23-Valent Vaccine IM ONE (10:00)
[2017-01-01] MEDS ORDERED: Influenza Virus Vaccine 45 mcg/0.5 ml Syr IM ONE (10:00)
[2017-01-01] MEDS: Enoxaparin 40 mg Syringe SC SCH (10:21)
[2017-01-01] MEDS: Pantoprazole 40 mg EC Tab PO SCH (10:54)
[2017-01-02] MEDS ORDERED: Aminophylline 25 mg/ml Inj ONE (08:02)
[2017-01-02] MEDS: Pantoprazole 40 mg EC Tab PO SCH (09:50)
[2017-01-02] MEDS: Enoxaparin 40 mg Syringe SC SCH (09:50)
[2017-01-02 16:53] VITALS: BP 93/63; PULSE 89; TEMP 98.5; O2SAT 97
--- NOTE | 2017-01-02 18:16 | CP.PCM.DIS ---
Provider - Provider Date of Admission: 12/29/16 10:05 Attending physician: Shannon Grider DO Primary care physician: none Consults: Psych: Dat Time Spent in preparation of Discharge (in minutes): 29 Hospital Course - Lab Results Lab Results: Most Recent Lab Values WBC 6.7 K/uL (4.8-10.8) 12/28/16 16:58 RBC 4.16 Mil/uL (4.40-5.90) L 12/28/16 16:58 Hgb 12.4 g/dL (12.0-18.0) 12/28/16 16:58 Hct 36.3 % (35.0-51.0) 12/28/16 16:58 MCV 87.3 fL (80.0-94.0) D 12/28/16 16:58 MCH 29.8 pg (27.0-31.0) 12/28/16 16:58 MCHC 34.2 g/dL (33.0-37.0) 12/28/16 16:58 RDW 13.8 % (11.5-14.5) 12/28/16 16:58 Plt Count 261 K/uL (130-400) 12/28/16 16:58 MPV 6.9 fL (7.2-11.7) L 12/28/16 16:58 Neut % (Auto) 70.8 % (50.0-75.0) 12/28/16 16:58 Lymph % (Auto) 19.0 % (20.0-40.0) L 12/28/16 16:58 [place] % (Auto) 7.3 % (0.0-10.0) 12/28/16 16:58 Eos % (Auto) 2.6 % (0.0-4.0) 12/28/16 16:58 Baso % (Auto) 0.3 % (0.0-2.0) 12/28/16 16:58 Neut # 4.7 K/uL (1.8-7.0) 12/28/16 16:58 Lymph # 1.3 K/uL (1.0-4.3) 12/28/16 16:58 [place] # 0.5 K/uL (0.0-0.8) 12/28/16 16:58 Eos # 0.2 K/uL (0.0-0.7) 12/28/16 16:58 Baso # 0.0 K/uL (0.0-0.2) 12/28/16 16:58 Sodium 135 mmol/L (132-148) 12/28/16 16:58 Potassium 3.8 mmol/L (3.6-5.2) 12/28/16 16:58 Chloride 94 mmol/L (98-107) L 12/28/16 16:58 Carbon Dioxide 29 mmol/L (22-30) 12/28/16 16:58 Anion Gap 16 (10-20) 12/28/16 16:58 BUN 11 mg/dL (9-20) 12/28/16 16:58 Creatinine 0.7 MG/DL (0.8-1.5) L 12/28/16 16:58 Est GFR ( Amer) > 60 12/28/16 16:58 Est GFR (Non-Af Amer) > 60 12/28/16 16:58 POC Glucose (mg/dL) 85 mg/dL (65-110) 12/28/16 00:30 Random Glucose 98 mg/dL (75-110) 12/28/16 16:58 Calcium 8.4 mg/dl (8.6-10.4) L 12/28/16 16:58 Phosphorus 4.1 mg/dL (2.5-4.5) 12/28/16 16:58 Magnesium 1.7 mg/dL (1.6-2.3) 12/28/16 16:58 Total Bilirubin 0.4 mg/dL (0.2-1.3) 12/28/16 16:58 AST 16 U/L (17-59) L 12/28/16 16:58 ALT 29 U/L (21-72) 12/28/16 16:58 Alkaline Phosphatase 88 U/L (38-126) 12/28/16 16:58 Total Protein 6.6 g/dL (6.3-8.3) 12/28/16 16:58 Albumin 3.5 g/dL (3.5-5.0) 12/28/16 16:58 Globulin 3.1 gm/dL (2.2-3.9) 12/28/16 16:58 Albumin/Globulin Ratio 1.1 (1.0-2.1) 12/28/16 16:58 TSH 3rd Generation 0.94 mIU/L (0.46-4.68) 12/28/16 16:58 Urine Color Yellow (YELLOW) 12/28/16 17:50 Urine Clarity Hazy (Clear) 12/28/16 17:50 Urine pH 7.0 (5.0-8.0) 12/28/16 17:50 Ur Specific [place] 1.020 (1.003-1.030) 12/28/16 17:50 Urine Protein Negative mg/dL (NEGATIVE) 12/28/16 17:50 Urine Glucose (UA) Normal mg/dL (Normal) 12/28/16 17:50 Urine Ketones Negative mg/dL (NEGATIVE) 12/28/16 17:50 Urine Blood Negative (NEGATIVE) 12/28/16 17:50 Urine Nitrate Negative (NEGATIVE) 12/28/16 17:50 Urine Bilirubin Negative (NEGATIVE) 12/28/16 17:50 Urine Urobilinogen 4.0 mg/dL (0.2-1.0) 12/28/16 17:50 Ur Leukocyte Esterase Neg Chloe/uL (Negative) 12/28/16 17:50 Urine WBC (Auto) 6 /hpf (0-5) H 12/28/16 17:50 Urine RBC (Auto) 1 /hpf (0-3) 12/28/16 17:50 Ur Squamous Epith Cells < 1 /hpf (0-5) 12/28/16 17:50 RPR Nonreactive (NONREACTIVE) 12/28/16 16:58 - Hospital Course Hospital Course: On hospital admission This is a 51 yo M with PMH of arthritis, chronic back pain and alcoholism that presented to the ED with a chief complaint of being too cold. Pt is well known to the ED. Pt states that he is handicapped from his chronic back issues as well and is not able to walk on his own. He says that he feels very unstable on his feet. This back pain is not a new issue. He has no other complaints. He states his last drink was about 2 days ago. He denies any current withdrawal symptoms. Denies fevers, chills, chest pain, palpitations, nausea, vomiting, numbness or tingling. Hospital course Pt on a daily basis would refuse exams and PT sessions. He refused vital signs at times as well as labs. Pt remained stable, tolerated PO intake and had normal output. On hospital discharge Pt was only waiting for authorization to go to [facility]. He was discharged in stable condition Diagnoses Gait dysfunction Eoth abuse Medications Multivitamin - Date & Time of H&P Date of H&P: 12/29/16 Time of H&P: 12:51 Discharge Exam - Head Exam Head Exam: ATRAUMATIC, NORMOCEPHALIC - Respiratory Exam Respiratory Exam: Clear to PA & Lateral, UNREMARKABLE - Cardiovascular Exam Cardiovascular Exam: +S1, +S2 - GI/Abdominal Exam GI & Abdominal Exam: Normal Bowel Sounds, Unremarkable Discharge Plan - Discharge Medications Prescriptions: Calcium/Vit B12/FA/Pyridoxine [Folic Acid-Vit B6-Vit B12 Tab] 1 each PO DAILY # 30 tablet - Follow Up Plan Condition: STABLE Disposition: HOME/ ROUTINE Instructions: Fall Prevention for Older Adults (GEN), Weakness (GEN), Fall Prevention (DC)
[2017-01-02] MEDS ORDERED: Pneumococcal 23-Valent Vaccine IM ONE (18:44)
== END 2017-01-02 20:05 | disposition home or self-care (01) | DRG 243 ==
LOC: C.ER 17:37 → C.9OBSV 18:43 → OBSVTOIN 12-29 10:05 → C.9E 12-29 10:05 → C.3T 12-29 13:22
PROVIDERS: ADMIT Hospitalist; ATTEND Hospitalist
DX: M54.89 Other dorsalgia (principal); F03.90 Unspecified dementia, unspecified severity, without behavioral disturbance, psychotic disturbance, mood disturbance, and anxiety; J44.9 Chronic obstructive pulmonary disease, unspecified; F41.9 Anxiety disorder, unspecified; F10.10 Alcohol abuse, uncomplicated; E11.9 Type 2 diabetes mellitus without complications; E03.9 Hypothyroidism, unspecified; Z59.0 Homelessness; Z72.0 Tobacco use; Z99.3 Dependence on wheelchair; G89.29 Other chronic pain

== ENCOUNTER 2017-05-08 08:38 | Inpatient (IN) | payer MEDICAID ==
[2017-05-08 08:48] VITALS: BMI 25.4
--- NOTE | 2017-05-08 09:16 | C.PDOC ---
History Of Present Illness 51 yr old male presents to the ER requesting evaluation of right arm, states "its broken, its dislocated". Patient refuses to give history of a injury and duration. Patient is well known to this ED for malingering and homelessness. Denies nausea, vomiting, suicidal ideation or homicidal ideation. REQUESTING EVAL R ARM. STATES "IT'S BROKEN, IT'S DISLOCATED". REFUSES TO GIVE HX TO INJURY. UNK DURATION. PT WELL KNOWN TO THIS ER FOR MALINGERING, HOMELESSNESS EXAM NAD HEENT ATRAUM UNCH PRIOR EXT RUE CHRONIC CONTRACTURE, WELL KNOWN TO THIS PROVIDER EXAM UNCH FROM PRIOR INTERACTION. NO GROSS DEFORM. PT REFUSING FULL ROM. REMAINDER NEG MDM OLD RECORDS REVIEWED. R ELBOW 12/2016 +CHRONIC DISLOCATION AND FX, NOTED TO BE UNCH FROM STUDIES 2016 Time Seen by Provider: 05/08/17 09:13 Chief Complaint (Nursing): Medical Clearance History Per: Patient History/Exam Limitations: no limitations Onset/Duration Of Symptoms: Unknown Past Medical History Reviewed: Historical Data, Nursing Documentation, Vital Signs Vital Signs: Last Vital Signs Temp 98.2 F 05/08/17 08:48 Pulse 88 05/08/17 08:48 Resp 18 05/08/17 08:48 BP 130/87 05/08/17 08:48 Pulse Ox 96 05/08/17 13:16 - Medical History PMH: Arthritis, Asthma, Back Problems, COPD, Dementia, Depression, Fractures, HTN, Hypothyroidism, Paranoia, Schizophrenia, Seizures Surgical History: Back Surgery (2010, spinal surgery) - [facility] Procedures ALCOHOL DETOXIFICATION (11/17/14) INJECT/INFUSE NEC (01/09/15) PSYCHIA INTERV/EVAL NEC (02/25/14) TETANUS TOXOID ADMINIST (12/18/14) VENOUS CATHETERIZATION NEC (11/29/14) Family History: States: No Known Family Hx - Social History Hx Tobacco Use: Yes Hx Alcohol Use: Yes Hx Substance Use: No - Immunization History Hx Tetanus Toxoid Vaccination: Yes (12/18/14) Hx Influenza Vaccination: No Hx Pneumococcal Vaccination: No Review Of Systems Except As Marked, All Systems Reviewed And Found Negative. Gastrointestinal: Negative for: Nausea, Vomiting Musculoskeletal: Positive for: Arm Pain (Right arm ) Psych: Negative for: Suicidal ideation Physical Exam - Physical Exam Appears: Non-toxic, No Acute Distress Skin: Warm, Dry, No Rash Head: Atraumatic, Normacephalic Chest: Symmetrical, No Tenderness Cardiovascular: Rhythm Regular, No Murmur Respiratory: Normal Breath Sounds, No Rales, No Rhonchi, No Wheezing Extremity: No Deformity, Other (RUE - Chronic contracture, well known to this provider exam unchanged from prior interactions. No gross deformity. Pt refusing full ROM. ) Neurological/Psych: Oriented x3, Normal Speech, Normal Motor ED Course And Treatment O2 Sat by Pulse Oximetry: 96 (RA ) Pulse Ox Interpretation: Normal - Other Rad X-Ray - Right Elbow X-Ray: Viewed By Me, Read By Radiologist Interpretation: PROCEDURE: Radiographs of the right elbow. HISTORY: PAIN. COMPARISON: No prior. FINDINGS: BONES: Examination grossly limited due to very uncooperative patient. Mildly displaced fracture proximal radial diaphysis. This is not evident on prior examination of 12/11/2015 or 12/19/2016. JOINTS: Dislocation of radial head, as on prior examinations. SOFT TISSUES: Normal. JOINT EFFUSION: No gross evidence of joint effusion. Evaluation limited. OTHER FINDINGS: None. IMPRESSION: Posterior dislocation radial head , chronic. Minimally displaced fracture proximal radial diaphysis not evident on earlier examinations. Limited examination. Progress - Re-Evaluation Re-evaluation Note: 05/08/17 09:38 xray unch from prior. ER BHUMI LUNSFORD TO D/W INPT AND RISK MGMT REGARDING PLACEMENT. 05/08/17 10:29 PT ADVISED EITHER ADMISSION FOR NURSING HOME PLACEMENT OR CONTINUED HOMELESSNESS. PT AGREES FOR ADMISSION. 05/08/17 12:08 D/W DR TILLEY WILL ADMIT. ACCEPTS LAB AND CXR FROM 05/07 FOR ADMISSION. REQUESTING UDS. - Data Reviewed Data Reviewed: Diagnostic imaging, Old records - Continuity of Care Discussed patient case with:: On-call PMD-pt unassigned Medical Decision Making Medical Decision Making: PLAN: * X-Ray - Right Elbow NOTE: Old records reviewed, right elbow 12/2016 +chronic dislocation and fx, noted to be unchanged from studies 2016. Disposition Counseled Patient/Family Regarding: Diagnosis - Disposition Disposition: HOSPITALIZED Disposition Time: 12:09 Condition: STABLE - POA Present On Arrival: None - Clinical Impression Clinical Impression: Chronic elbow pain, Malingering, Medical assessment - Scribe Statement The provider has reviewed the documentation as recorded by the Scribe Marychuy Webb Provider Attestation: All medical record entries made by the Prince were at my direction and personally dictated by me. I have reviewed the chart and agree that the record accurately reflects my personal performance of the history, physical exam, medical decision making, and the department course for this patient. I have also personally directed, reviewed, and agree with the discharge instructions and disposition. Decision To Admit - Pt Status Changed To: Hospital Disposition Of: Observation - . Bed Request Type: Regular Admitting Physician: Kaiden Tilley Patient Diagnosis: Chronic elbow pain, Malingering, Medical assessment
--- NOTE | 2017-05-08 13:11 | RAD ---
PROCEDURE: Radiographs of the right elbow. HISTORY: PAIN COMPARISON: No prior. FINDINGS: BONES: Examination grossly limited due to very uncooperative patient. Mildly displaced fracture proximal radial diaphysis. This is not evident on prior examination of 12/11/2015 or 12/19/2016. JOINTS: Dislocation of radial head, as on prior examinations. SOFT TISSUES: Normal. JOINT EFFUSION: No gross evidence of joint effusion. Evaluation limited. OTHER FINDINGS: None. IMPRESSION: Posterior dislocation radial head, chronic. Minimally displaced fracture proximal radial diaphysis not evident on earlier examinations. Limited examination.
--- NOTE | 2017-05-08 13:54 | CP.PCM.HP ---
<Nelly Norman - Last Filed: 05/08/17 14:07> History of Present Illness - History of Present Illness History of Present Illness: CC: right arm pain 51 year old male with past medical history of arthritis, chronic back pain and ETOH abuse presents with right forearm pain for about 1 week. Patient states that he has had multiple falls in the past on his right arm. He states that he is unable to use hand due to the pain it causes in the arm. Patient denies using anythign for the pain before coming into the ED. Patient is also complaining of increased urination. Patient denies having any dysuria or hematuria. Patient denies having any CP, SOB, abd pain, N/v/D/C, fevers or chills. 12 point ROS are negative except for the above mentioned. PMD: none PMH: arthritis, chronic back pain, Etoh abuse PSH: back surgery Home meds: none Allergies: NKDA FH: denies SH: admits to tobacco use and Etoh abuse occasionally, denies any other drugs. Currently homeless Present on Admission - Present on Admission Any Indicators Present on Admission: No Past Patient History - Infectious Disease Hx of Infectious Diseases: None - Tetanus Immunizations Tetanus Immunization: Unknown - Past Medical History & Family History Past Medical History?: Yes - Past Social History Smoking Status: Current Some Days Smoker Chewing Tobacco Use: No Cigar Use: No Alcohol: Occasional Drugs: Denies Home Situation {Lives}: Homeless - CARDIAC Hx Hypertension: Yes - PULMONARY Hx Asthma: Yes Hx Chronic Obstructive Pulmonary Disease (COPD): Yes - NEUROLOGICAL Hx Dementia: Yes Hx Seizures: Yes - HEENT Hx HEENT Problems: No - RENAL Hx Chronic Kidney Disease: No - ENDOCRINE/METABOLIC Hx Hypothyroidism: Yes - HEMATOLOGICAL/ONCOLOGICAL Hx Human Immunodeficiency Virus (HIV): No - INTEGUMENTARY Hx Dermatological Problems: Yes Other/Comment: Scab formation on scalp - MUSCULOSKELETAL/RHEUMATOLOGICAL Hx Arthritis: Yes Hx Fractures: Yes - GASTROINTESTINAL Hx Gastrointestinal Disorders: No - GENITOURINARY/GYNECOLOGICAL Hx Sexually Transmitted Disorders: No - PSYCHIATRIC Hx Depression: Yes Hx Paranoia: Yes Hx Schizophrenia: Yes Hx Substance Use: No - SURGICAL HISTORY Hx Surgeries: Yes - ANESTHESIA Hx Anesthesia: Yes Hx Anesthesia Reactions: No Meds Allergies/Adverse Reactions: Allergies Allergy/AdvReac Type Severity Reaction Status Date / Time No Known Allergies Allergy Verified 05/08/17 08:48 Physical Exam - Constitutional Appears: Non-toxic - Head Exam Head Exam: ATRAUMATIC - ENT Exam ENT Exam: Mucous Membranes Moist - Respiratory Exam Respiratory Exam: Clear to Auscultation Bilateral, NORMAL BREATHING PATTERN. absent: Accessory Muscle Use, Rales, Rhonchi, Wheezes, Respiratory Distress - Cardiovascular Exam Cardiovascular Exam: REGULAR RHYTHM, +S1, +S2. absent: Diastolic murmur, Gallop , Rubs, Systolic Murmur - GI/Abdominal Exam GI & Abdominal Exam: Normal Bowel Sounds, Soft. absent: Distended, Firm, Guarding, Rigid, Tenderness - Extremities Exam Extremities exam: Negative for: pedal edema, tenderness - Neurological Exam Neurological exam: Alert, Oriented x3 - Psychiatric Exam Psychiatric exam: Normal Affect, Normal Mood - Skin Skin Exam: Dry, Intact, Normal Color, Warm Results - Vital Signs Recent Vital Signs: Last Vital Signs Temp 98.2 F 05/08/17 08:48 Pulse 88 05/08/17 08:48 Resp 18 05/08/17 08:48 BP 130/87 05/08/17 08:48 Pulse Ox 96 05/08/17 13:16 - Labs Labs: Laboratory Results - last 24 hr 05/08/17 13:11 Alcohol, Quantitative < 10 Assessment & Plan - Assessment and Plan (Free Text) Assessment: 51 year old male with past medical history of arthritis, chronic back pain, Etoh abuse is admitted for right arm pain. Right arm pain - Xray of right arm shows posterior dislocation of radial head, chronic. Minimally displaced fracture of proximal diaphysis not evident on earlier examinations. - Will consulted ortho, Dr. Villa for further recs - Pain management with tramadol 30 mg IV prn - Will consult physical therapy Increased urinary frequency - Will check urinalysis ETOH abuse - [facility] protocol - Librium prn - Will check UDS Homeless - Will consult case management Prophylaxis - Protonix - Lovenox - SCDs Case discussed with attending, Dr. Tilley <Kaiden Tilley - Last Filed: 05/08/17 18:28> Results - Vital Signs Recent Vital Signs: Last Vital Signs Temp 98.7 F 05/08/17 16:04 Pulse 82 05/08/17 16:04 Resp 18 05/08/17 16:04 BP 128/77 05/08/17 16:04 Pulse Ox 98 05/08/17 16:04 - Labs Labs: Laboratory Results - last 24 hr 05/08/17 05/08/17 05/08/17 13:11 13:23 16:06 Urine Color Yellow Urine Clarity Clear Urine pH 6.0 Ur Specific [place] 1.020 Urine Protein Negative Urine Glucose (UA) Normal Urine Ketones 2+ H Urine Blood Negative Urine Nitrate Negative Urine Bilirubin Negative Urine Urobilinogen 4.0 Ur Leukocyte Esterase Neg Urine WBC (Auto) 2 Urine RBC (Auto) 1 Urine Opiates Screen Negative Urine Methadone Screen Negative Ur Barbiturates Screen Negative Ur Phencyclidine Scrn Negative Ur Amphetamines Screen Negative U Benzodiazepines Scrn Negative U Oth Cocaine Metabols Negative U Cannabinoids Screen Negative Alcohol, Quantitative < 10 Attending/Attestation - Attestation I have personally seen and examined this patient.: Yes I have fully participated in the care of the patient.: Yes I have reviewed all pertinent clinical information: Yes Notes (Text): 05/08/17 18:28 Patient was seen and examined at bedside with the resident at the time of admission I discussed the plan of care with the resident and agree with the history and physical and assessment/plan documented above.
[2017-05-08 16:17] LABS: RBC URINE 1 /hpf (0-3); URINE BILIRUBIN NEGATIVE (NEGATIVE); URINE BLOOD NEGATIVE (NEGATIVE); URINE COLOR Yellow (YELLOW); URINE GLUCOSE (UA) NORMAL (Normal); URINE KETONE 2+ mg/dL (NEGATIVE); URINE LEUKOCYTE ESTERASE NEG Leu/uL (Negative); URINE PROTEIN NEGATIVE (NEGATIVE); WBC URINE 2 /hpf (0-5)
[2017-05-09 08:58] LABS: BASO % 0.5 % (0.0-2.0); EOS # 0.1 K/uL (0.0-0.7); EOS % 1.6 % (0.0-4.0); HEMATOCRIT 35.4 % (35.0-51.0); LYMPH # 1.1 K/uL (1.0-4.3); MEAN CELL VOLUME 89.3 fL (80.0-94.0); MEAN CORPUSCULAR HEMOGLOBIN 30.4 pg (27.0-31.0); MEAN PLATELET VOLUME 7.5 fL (7.2-11.7); MONO # 0.8 K/uL (0.0-0.8); MONO % 9.7 % (0.0-10.0); NRBC % 0.1 % (0.0-2.0); RED CELL DISTRIBUTION WIDTH 13.9 % (11.5-14.5); WHITE BLOOD COUNT 8.2 K/uL (4.8-10.8)
[2017-05-09 09:14] LABS: ALKALINE PHOSPHATASE 73 U/L (38-126); ALT/SGPT 26 U/L (21-72); AST/SGOT 17 U/L (17-59); BILIRUBIN,TOTAL 0.8 mg/dL (0.2-1.3); BLOOD UREA NITROGEN 8 mg/dL (9-20); CALCIUM 7.9 mg/dl (8.6-10.4); CARBON DIOXIDE 23 mmol/L (22-30); CHLORIDE 96 mmol/L (98-107); GFR AFRICAN-AMERICAN > 60; GLUCOSE,RANDOM 103 mg/dL (75-110); POTASSIUM 3.7 mmol/L (3.6-5.2); SODIUM 126 mmol/L (132-148); TOTAL PROTEIN 5.6 g/dL (6.3-8.3)
[2017-05-09 09:18] LABS: ALB/GLOB RATIO 1.2 (1.0-2.1)
[2017-05-09] MEDS: Enoxaparin 30 mg Syringe SC SCH (09:25)
--- NOTE | 2017-05-09 14:27 | CP.PCM.PN ---
<Nelly Norman - Last Filed: 05/09/17 14:24> Subjective - Date & Time of Evaluation Date of Evaluation: 05/09/17 Time of Evaluation: 14:24 - Subjective Subjective: PGY2 progress note for hospitalists Pt is seen and examined at bedside. No acute events overnight. Pt continues to c/o right arm pain. Patient denies having any CP, SOB, abd pain, N/V/d/C. Patient is tolerating diet. Denies having any tremors, anxiety or diaphoresis. 12 point ROS are negative except for the above mentioned. Objective - Vital Signs/Intake and Output Vital Signs (last 24 hours): Temp Pulse Resp BP Pulse Ox 98.0 F 65 20 126/73 97 05/09/17 07:51 05/09/17 07:51 05/09/17 07:51 05/09/17 07:51 05/09/17 07:51 - Medications Medications: Current Medications Chlordiazepoxide (Librium) 5 mg PO Q8 PRN PRN Reason: Other Enoxaparin Sodium (Lovenox) 30 mg SC DAILY [facility] Last Admin: 05/09/17 09:25 Dose: Not Given Famotidine (Pepcid) 20 mg PO DAILY [facility] Last Admin: 05/09/17 09:25 Dose: 20 mg Influenza Virus Vaccine (Afluria) 45 mcg IM .ONCE ONE Stop: 05/11/17 10:01 Ketorolac Tromethamine (Toradol) 30 mg IV Q6 PRN PRN Reason: Pain, Mild (1-3) Last Admin: 05/09/17 01:40 Dose: 30 mg - Constitutional Appears: Non-toxic, No Acute Distress - Head Exam Head Exam: ATRAUMATIC - Eye Exam Eye Exam: EOMI - ENT Exam ENT Exam: Mucous Membranes Moist - Respiratory Exam Respiratory Exam: Clear to Ausculation Bilateral, NORMAL BREATHING PATTERN. absent: Accessory Muscle Use, Rales, Rhonchi, Wheezes, Respiratory Distress - Cardiovascular Exam Cardiovascular Exam: REGULAR RHYTHM, +S1, +S2. absent: Gallop, Rubs, Murmur - GI/Abdominal Exam GI & Abdominal Exam: Soft, Normal Bowel Sounds. absent: Firm, Guarding, Rigid, Tenderness, Organomegaly - Extremities Exam Extremities Exam: absent: Pedal Edema, Tenderness - Neurological Exam Neurological Exam: Alert, Awake, Oriented x3 - Psychiatric Exam Psychiatric exam: Normal Affect, Normal Mood - Skin Skin Exam: Dry, Intact, Normal Color, Warm Assessment and Plan - Assessment and Plan (Free Text) Assessment: 51 year old male with past medical history of arthritis, chronic back pain, Etoh abuse is admitted for right arm pain. Right arm pain - Xray of right arm shows posterior dislocation of radial head, chronic. Minimally displaced fracture of proximal diaphysis not evident on earlier examinations. - After studying the record from previous admission, right elbow xray from shows chronically subluxed humeral head. - Consulted ortho, Dr. Villa. After discussing with Dr. Villa about patient 's xray finding and clinical presentation, it is recommended that patient's arm be placed in sling and he follow up outpatient in clinic with Dr. Villa. This condition is likely chronic. Patient will be given referral to Dr. Villa' s office. CT of upper extremity ordered by Dr. Villa. - Pain management with tramadol 30 mg IV prn - Physical therapy consulted. Increased urinary frequency - UA is negative ETOH abuse - [facility] protocol - Librium prn - UDS and ETOH level negative Homeless - Case management consult requested Prophylaxis - Protonix - Lovenox - SCDs Case discussed with attending, Dr. Tilley <Kaiden Tilley - Last Filed: 05/09/17 17:25> Objective - Vital Signs/Intake and Output Vital Signs (last 24 hours): Temp Pulse Resp BP Pulse Ox 98.1 F 77 20 114/71 97 05/09/17 16:00 05/09/17 16:00 05/09/17 16:00 05/09/17 16:00 05/09/17 16:00 Intake and Output: 05/09/17 05/09/17 06:59 18:59 Intake Total 450 Balance 450 - Medications Medications: Current Medications Chlordiazepoxide (Librium) 5 mg PO Q8 PRN PRN Reason: Other Enoxaparin Sodium (Lovenox) 30 mg SC DAILY [facility] Last Admin: 05/09/17 09:25 Dose: Not Given Famotidine (Pepcid) 20 mg PO DAILY [facility] Last Admin: 05/09/17 09:25 Dose: 20 mg Ketorolac Tromethamine (Toradol) 30 mg IV Q6 PRN PRN Reason: Pain, Mild (1-3) Last Admin: 05/09/17 01:40 Dose: 30 mg Attending/Attestation - Attestation I have personally seen and examined this patient.: Yes I have fully participated in the care of the patient.: Yes I have reviewed all pertinent clinical information, including history, physical exam and plan: Yes Notes (Text): 05/09/17 17:24 Patient seen and examined at bedside Continues to complain of pain in the right arm Patient will need outpatient follow-up with orthopedics Continue current medical management Social work evaluation for long-term placement for the patient. I discussed plan of care with the resident agree with the assessment and plan by the resident.
[2017-05-10 07:21] LABS: BASO # 0.1 K/uL (0.0-0.2); BASO % 1.4 % (0.0-2.0); EOS # 0.2 K/uL (0.0-0.7); EOS % 3.7 % (0.0-4.0); HEMATOCRIT 36.8 % (35.0-51.0); LYMPH # 1.4 K/uL (1.0-4.3); MEAN CELL VOLUME 89.1 fL (80.0-94.0); MEAN CORPUSCULAR HEMOGLOBIN 30.2 pg (27.0-31.0); MEAN CORPUSCULAR HGB CONC 33.9 g/dL (33.0-37.0); MEAN PLATELET VOLUME 7.8 fL (7.2-11.7); MONO # 0.5 K/uL (0.0-0.8); MONO % 7.5 % (0.0-10.0); RED CELL DISTRIBUTION WIDTH 14.3 % (11.5-14.5); WHITE BLOOD COUNT 6.6 K/uL (4.8-10.8)
[2017-05-10] MEDS: Enoxaparin 30 mg Syringe SC SCH (10:03)
[2017-05-10 11:23] LABS: CHLORIDE 96 mmol/L (98-107)
[2017-05-10 11:24] LABS: POTASSIUM 3.7 mmol/L (3.6-5.2); SODIUM 129 mmol/L (132-148)
[2017-05-10 11:26] LABS: ALB/GLOB RATIO 1.1 (1.0-2.1); ALKALINE PHOSPHATASE 68 U/L (38-126); AST/SGOT 14 U/L (17-59); BILIRUBIN,TOTAL 0.4 mg/dL (0.2-1.3); BLOOD UREA NITROGEN 7 mg/dL (9-20); CARBON DIOXIDE 23 mmol/L (22-30); GFR AFRICAN-AMERICAN > 60; TOTAL PROTEIN 5.4 g/dL (6.3-8.3)
[2017-05-10 11:27] LABS: ALT/SGPT 23 U/L (21-72); CALCIUM 7.8 mg/dl (8.6-10.4); GLUCOSE,RANDOM 121 mg/dL (75-110)
--- NOTE | 2017-05-10 16:28 | CP.PCM.PN ---
<Nelly Norman - Last Filed: 05/10/17 16:25> Subjective - Date & Time of Evaluation Date of Evaluation: 05/10/17 Time of Evaluation: 16:25 - Subjective Subjective: PGY2 progress note for hospitalists Pt is seen and examined at bedside. No acute events overnight. Patient refuses to put right arm in sling stating that it will not help him. Patient denies having any CP, SOB, abd pain, N/V/D/C. Patient is tolerating diet. 12 point ROS are negative except for the above mentioned. Objective - Vital Signs/Intake and Output Vital Signs (last 24 hours): Temp Pulse Resp BP Pulse Ox 98.1 F 67 20 121/81 96 05/10/17 08:13 05/10/17 08:13 05/10/17 08:13 05/10/17 08:13 05/10/17 08:13 Intake and Output: 05/10/17 05/10/17 06:59 18:59 Intake Total 500 930 Balance 500 930 - Medications Medications: Current Medications Acetaminophen (Tylenol 325mg Tab) 650 mg PO Q6 PRN PRN Reason: Pain, Mild (1-3) Last Admin: 05/10/17 14:32 Dose: 650 mg Chlordiazepoxide (Librium) 5 mg PO Q8 PRN PRN Reason: Other Enoxaparin Sodium (Lovenox) 30 mg SC DAILY [facility] Last Admin: 05/10/17 10:03 Dose: Not Given Famotidine (Pepcid) 20 mg PO DAILY [facility] Last Admin: 05/10/17 10:02 Dose: 20 mg - Labs Labs: 05/10/17 07:07 05/10/17 11:04 - Constitutional Appears: Non-toxic, No Acute Distress - Head Exam Head Exam: ATRAUMATIC - ENT Exam ENT Exam: Mucous Membranes Moist - Respiratory Exam Respiratory Exam: Clear to Ausculation Bilateral. absent: Accessory Muscle Use , Rales, Rhonchi, Wheezes, Respiratory Distress - Cardiovascular Exam Cardiovascular Exam: REGULAR RHYTHM, +S1, +S2. absent: Gallop, Rubs, Murmur - GI/Abdominal Exam GI & Abdominal Exam: Soft, Normal Bowel Sounds. absent: Distended, Firm, Guarding, Rigid, Tenderness, Organomegaly - Extremities Exam Extremities Exam: absent: Pedal Edema, Tenderness - Neurological Exam Neurological Exam: Alert, Awake, Oriented x3 - Psychiatric Exam Psychiatric exam: Normal Affect, Normal Mood - Skin Skin Exam: Dry, Intact, Normal Color, Warm Assessment and Plan - Assessment and Plan (Free Text) Assessment: 51 year old male with past medical history of arthritis, chronic back pain, Etoh abuse is admitted for right arm pain. Right arm pain - Xray of right arm shows posterior dislocation of radial head, chronic. Minimally displaced fracture of proximal diaphysis not evident on earlier examinations. - After studying the record from previous admission, right elbow xray from shows chronically subluxed humeral head. - Consulted ortho, Dr. Villa. After discussing with Dr. Villa about patient 's xray finding and clinical presentation, it is recommended that patient's arm be placed in sling and he follow up outpatient in clinic with Dr. Villa. This condition is likely chronic. Patient will be given referral to Dr. Villa' s office. CT of upper extremity ordered by Dr. Villa. - Tylenol for pain. Patient refuses to take tramadol - Physical therapy consulted. - Patient refuses to wear arm in sling. Discussed the benefits for placing arm in sling with patient in details but he still refuses. Increased urinary frequency - UA is negative ETOH abuse - [facility] protocol - Librium prn - UDS and ETOH level negative Homeless - Case management consult requested Prophylaxis - Protonix - Lovenox - SCDs Case discussed with attending, Dr. Tilley <Kaiden Tilley - Last Filed: 05/18/17 13:23> Objective - Vital Signs/Intake and Output Vital Signs (last 24 hours): Temp Pulse Resp BP Pulse Ox 98.2 F 89 20 109/75 98 05/15/17 04:00 05/15/17 04:00 05/15/17 04:00 05/15/17 04:00 05/15/17 04:00 - Labs Labs: 05/15/17 07:14 05/15/17 07:14 Attending/Attestation - Attestation I have personally seen and examined this patient.: Yes I have fully participated in the care of the patient.: Yes I have reviewed all pertinent clinical information, including history, physical exam and plan: Yes Notes (Text): 05/18/17 13:22 Patient was seen and examined at bedside with the resident Complains of pain in the arm at the site of old fracture Patient will need an outpatient follow with orthopedics I discussed the plan of care with the resident and agree with assessment and plan documented by the resident.
[2017-05-11 07:48] LABS: CHLORIDE 97 mmol/L (98-107); POTASSIUM 4.2 mmol/L (3.6-5.2); SODIUM 132 mmol/L (132-148)
[2017-05-11 07:50] LABS: BILIRUBIN,TOTAL 0.4 mg/dL (0.2-1.3); GFR AFRICAN-AMERICAN > 60
[2017-05-11 07:51] LABS: ALB/GLOB RATIO 1.2 (1.0-2.1); ALKALINE PHOSPHATASE 81 U/L (38-126); ALT/SGPT 23 U/L (21-72); AST/SGOT 17 U/L (17-59); BLOOD UREA NITROGEN 6 mg/dL (9-20); CARBON DIOXIDE 23 mmol/L (22-30); GLUCOSE,RANDOM 97 mg/dL (75-110); TOTAL PROTEIN 6.3 g/dL (6.3-8.3)
[2017-05-11 07:52] LABS: CALCIUM 8.4 mg/dl (8.6-10.4)
[2017-05-11 07:55] LABS: BASO % 0.8 % (0.0-2.0); EOS # 0.2 K/uL (0.0-0.7); EOS % 3.9 % (0.0-4.0); HEMATOCRIT 38.7 % (35.0-51.0); LYMPH # 1.1 K/uL (1.0-4.3); LYMPH % 18.1 % (20.0-40.0); MEAN CORPUSCULAR HEMOGLOBIN 30.3 pg (27.0-31.0); MEAN CORPUSCULAR HGB CONC 34.5 g/dL (33.0-37.0); MEAN PLATELET VOLUME 8.1 fL (7.2-11.7); MONO # 0.3 K/uL (0.0-0.8); RED CELL DISTRIBUTION WIDTH 14.2 % (11.5-14.5); WHITE BLOOD COUNT 6.2 K/uL (4.8-10.8)
[2017-05-11] MEDS: Enoxaparin 30 mg Syringe SC SCH (09:27)
--- NOTE | 2017-05-11 09:33 | CP.PCM.PN ---
<Monico Cuenca - Last Filed: 05/11/17 18:22> Subjective - Date & Time of Evaluation Date of Evaluation: 05/11/17 Time of Evaluation: 09:45 - Subjective Subjective: Medicine Note (PGY 1): Dr. Elizabeth Bowers's service Patient was seen and examined at bedside. Patient was resting comfortably in his bed. Patient had no acute issues overnight and no new complaints. Patient denies chest pain, sob, palpitations, nausea, vomiting, abdominal pain, diarrhea , fever and chills. Patient continues to remain adamant about not wearing his arm sling as recommended. Patient continues to report that he has a fracture that needs to be fixed, even though he has been told that diagnostic images states otherwise. Objective - Vital Signs/Intake and Output Vital Signs (last 24 hours): Temp Pulse Resp BP Pulse Ox 98.7 F 68 20 124/82 97 05/10/17 23:40 05/10/17 23:40 05/10/17 23:40 05/10/17 23:40 05/10/17 23:40 Intake and Output: 05/11/17 05/11/17 06:59 18:59 Intake Total 300 100 Balance 300 100 - Medications Medications: Current Medications Acetaminophen (Tylenol 325mg Tab) 650 mg PO Q6 PRN PRN Reason: Pain, Mild (1-3) Last Admin: 05/11/17 08:43 Dose: 650 mg Chlordiazepoxide (Librium) 5 mg PO Q8 PRN PRN Reason: Other Enoxaparin Sodium (Lovenox) 30 mg SC DAILY [facility] Last Admin: 05/11/17 09:27 Dose: Not Given Famotidine (Pepcid) 20 mg PO DAILY [facility] Last Admin: 05/11/17 09:26 Dose: 20 mg - Labs Labs: 05/11/17 07:28 05/11/17 07:28 - Constitutional Appears: Well, No Acute Distress - Head Exam Head Exam: ATRAUMATIC, NORMAL INSPECTION - Eye Exam Eye Exam: EOMI, Normal appearance - ENT Exam ENT Exam: Mucous Membranes Moist, Normal Exam - Respiratory Exam Respiratory Exam: Clear to Ausculation Bilateral, NORMAL BREATHING PATTERN - Cardiovascular Exam Cardiovascular Exam: REGULAR RHYTHM, +S1, +S2 - GI/Abdominal Exam GI & Abdominal Exam: Soft, Normal Bowel Sounds - Extremities Exam Extremities Exam: Normal Inspection. absent: Calf Tenderness, Tenderness - Neurological Exam Neurological Exam: Alert, Awake - Skin Skin Exam: Dry, Normal Color, Warm Assessment and Plan (1) Right arm pain Assessment & Plan: Stable Orthopedics Consult, Dr. Vilal-----> Help appreciated * As per conversation between weekend care team and Dr. Villa, it was recommended that patient's arm needs to be placed in a sling and to follow-up outpatient * Patient continues to refuse to wear arm sling after discussion on how important it is to keep is arm immobilized. Medications: * Acetaminophen 650mg PO Q6 prn for pain control * Toradol 30mg IV Q6 prn for pain control * Physical and occupation therapy evaluation and treatment Imaging: Right Elbow X-ray (12/19/16): Limited assessment due to chronic dislocation and advanced degenerative changes. No definite evidence of acute displaced fracture. Re- demonstration of dislocation of the proximal radius head. If clinically warranted further assessment by CT may be obtained. Right Elbow X-ray (05/08/17): Posterior dislocation radial head, chronic. Minimally displaced fracture proximal radial diaphysis not evident on earlier examinations. Limited examination. Upper extremity CT (05/11/17): * Posterior dislocation of the radial head in relationship to the capitellum. Cortical irregularity and deformity of the radial head. 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 Mild distraction at the fracture site. * Prominent degenerative changes at the articulation of the distal humerus and ulna with joint space narrowing, subchondral sclerosis, subchondral cyst formation, and bony deformity and cortical irregularity at the level of the coronoid process as well as the anterior aspect of the distal medial humerus. This may be better evaluated with MRI for acute injury. * Rounded ossific density seen at the posterior aspect of the elbow joint space adjacent to the radial head which may represent large loose osteochondral body versus avulsion injury. * Additional questionable loose osteochondral bodies and/or avulsed fracture fragments at the anterior aspects of the elbow joint space. * Small to moderate elbow joint effusion. Status: Acute (2) Urinary frequency Assessment & Plan: Resolved UA on admission: * Negative Status: Acute (3) History of alcohol abuse Assessment & Plan: Continue Librium 5mg PO Q6 PRN Negative for signs of alcohol withdraw On admission: UDS and alcohol levels: Negative Status: Acute (4) Prophylactic measure Assessment & Plan: SCD GI prophylaxis: protonix 20mg PO daily DVT Prophylaxis: Lovenox 30mg SC daily Status: Acute <Roni Bowers Rl - Last Filed: 05/11/17 20:21> Objective - Vital Signs/Intake and Output Vital Signs (last 24 hours): Temp Pulse Resp BP Pulse Ox 98.5 F 74 20 120/74 98 05/11/17 17:05 05/11/17 17:05 05/11/17 17:05 05/11/17 17:05 05/11/17 17:05 Intake and Output: 05/11/17 05/12/17 18:59 06:59 Intake Total 400 Output Total 700 Balance -300 - Medications Medications: Current Medications Acetaminophen (Tylenol 325mg Tab) 650 mg PO Q6 PRN PRN Reason: Pain, Mild (1-3) Last Admin: 05/11/17 08:43 Dose: 650 mg Chlordiazepoxide (Librium) 5 mg PO Q8 PRN PRN Reason: Other Enoxaparin Sodium (Lovenox) 30 mg SC DAILY [facility] Last Admin: 05/11/17 09:27 Dose: Not Given Famotidine (Pepcid) 20 mg PO DAILY [facility] Last Admin: 05/11/17 09:26 Dose: 20 mg - Labs Labs: 05/11/17 07:28 05/11/17 07:28 Attending/Attestation - Attestation I have personally seen and examined this patient.: Yes I have fully participated in the care of the patient.: Yes I have reviewed all pertinent clinical information, including history, physical exam and plan: Yes Notes (Text): 05/11/17 20:18 Patient was seen and examined at 2:30 PM 05/11/17 Exam and assessment and plan were thoroughly gone over with the resident. I spoke with Settlement Clerk Eliana who revealed that patient has been declined by all of the [facility] facilities in the [place] area. Patient is not willing to consider going to any [facility] that are not located in [place]. Therefore patient will be discharged in the morning of 05/12/17 after he is provided with [facility] Information. I explained this to patient and he stated that he will just go to another hospital. I epxlained to him that he need to wear the right arm sling as recommended by Orthopedics and follow up with Dr. Damon as instructed and he stated that he would not do this. Roni Bowers D.O.
[2017-05-11] MEDS ORDERED: Influenza Virus Vaccine (Afluria Inactive dont use ) IM ONE (10:00)
--- NOTE | 2017-05-11 17:00 | CT ---
CT RIGHT ELBOW HISTORY: DISLOCATION. COMPARISON: X-RAY dated 05/08/2017 Technique: Multiple contiguous axial images were performed through the right elbow without the use of intravenous contrast. Subsequently, sagittal coronal reformatted images were obtained. Findings: Posterior dislocation of the radial head in relationship to the capitellum. Cortical irregularity and deformity of the radial head. 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 Mild distraction at the fracture site. Prominent degenerative changes at the articulation of the distal humerus and ulna with joint space narrowing, subchondral sclerosis, subchondral cyst formation, and bony deformity and cortical irregularity at the level of the coronoid process as well as the anterior aspect of the distal medial humerus. This may be better evaluated with MRI for acute injury. Rounded ossific density seen at the posterior aspect of the elbow joint space adjacent to the radial head which may represent large loose osteochondral body versus avulsion injury. Additional questionable loose osteochondral bodies and/or avulsed fracture fragments at the anterior aspects of the elbow joint space. Small to moderate elbow joint effusion. Impression: 1. Posterior dislocation of the radial head in relationship to the capitellum. Cortical irregularity and deformity of the radial head. 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 Mild distraction at the fracture site. 2. Prominent degenerative changes at the articulation of the distal humerus and ulna with joint space narrowing, subchondral sclerosis, subchondral cyst formation, and bony deformity and cortical irregularity at the level of the coronoid process as well as the anterior aspect of the distal medial humerus. This may be better evaluated with MRI for acute injury. 3. Rounded ossific density seen at the posterior aspect of the elbow joint space adjacent to the radial head which may represent large loose osteochondral body versus avulsion injury. 4. Additional questionable loose osteochondral bodies and/or avulsed fracture fragments at the anterior aspects of the elbow joint space. 5. Small to moderate elbow joint effusion.
[2017-05-12] MEDS: Enoxaparin 30 mg Syringe SC SCH (09:09)
[2017-05-12 11:42] LABS: BASO # 0.1 K/uL (0.0-0.2); BASO % 1.1 % (0.0-2.0); EOS # 0.2 K/uL (0.0-0.7); EOS % 2.9 % (0.0-4.0); HEMATOCRIT 38.5 % (35.0-51.0); LYMPH # 0.9 K/uL (1.0-4.3); LYMPH % 16.3 % (20.0-40.0); MEAN CELL VOLUME 89.1 fL (80.0-94.0); MEAN CORPUSCULAR HEMOGLOBIN 30.1 pg (27.0-31.0); MEAN CORPUSCULAR HGB CONC 33.7 g/dL (33.0-37.0); MEAN PLATELET VOLUME 7.7 fL (7.2-11.7); MONO # 0.3 K/uL (0.0-0.8); MONO % 5.3 % (0.0-10.0); RED CELL DISTRIBUTION WIDTH 14.1 % (11.5-14.5); WHITE BLOOD COUNT 5.8 K/uL (4.8-10.8)
[2017-05-12 11:59] LABS: CHLORIDE 95 mmol/L (98-107); POTASSIUM 3.7 mmol/L (3.6-5.2); SODIUM 132 mmol/L (132-148)
[2017-05-12 12:01] LABS: AST/SGOT 16 U/L (17-59); BILIRUBIN,TOTAL 0.5 mg/dL (0.2-1.3); CARBON DIOXIDE 23 mmol/L (22-30); GFR AFRICAN-AMERICAN > 60
[2017-05-12 12:02] LABS: ALB/GLOB RATIO 1.2 (1.0-2.1); ALKALINE PHOSPHATASE 76 U/L (38-126); ALT/SGPT 18 U/L (21-72); BLOOD UREA NITROGEN 8 mg/dL (9-20); CALCIUM 8.4 mg/dl (8.6-10.4); GLUCOSE,RANDOM 128 mg/dL (75-110); PHOSPHOROUS 3.2 mg/dL (2.5-4.5); TOTAL PROTEIN 6.2 g/dL (6.3-8.3)
[2017-05-12 12:03] LABS: MAGNESIUM 1.5 mg/dL (1.6-2.3)
--- NOTE | 2017-05-12 12:12 | CP.PCM.PCO ---
Physician Communication Note - Physician Communication Note Physician Communication Note: Please see above.
--- NOTE | 2017-05-12 13:29 | PCM.PSYCH ---
Initial Psychiatric Evaluation - Initial Psychiatric Evaluation Type of Admission: Voluntary Legal Status: Capacity Chief Complaint (in patient's own words): I relapsed on drinking History of Present Illness and Precipitating Events: Patient is a 51 year old, homeless, disabled, male with a history of alcohol use disorder admitted for treatment of his alcohol intoxication. Patient has suicidal ideations, stating that he is "bored with life" and wonders "when will it end". He drinks 1/2-1 pint of vodka with occasional beer about 3 times per week - stating he will drink whenever he "can get his hands on it". He denies use of heroin, PCP, LSD or cocaine. Patient smokes cigarettes when he can. Patient denies hallucinations, voices or paranoia. Patient reports poor sleep and poor food intake due being homeless. Patient says he is trying to get SS disability to get off the streets because he drinks when he is bored. Psych hx: alcohol use disorder - severe Family psych hx: denies psychiatric issues or drug use Medical hx: Had spinal surgery in 2010 after a fall. Pt dislocated his arm may years ago and says that it is broken. Social hx: single, unemployed, disabled, homeless, no children Current Medications: Active Medications Generic Name Dose Route Start Last Admin Trade Name Freq PRN Reason Stop Dose Admin Acetaminophen 650 mg 05/10/17 13:51 05/12/17 06:19 Tylenol 325mg Tab PO 650 mg Q6 PRN Administration Pain, Mild (1-3) Chlordiazepoxide 5 mg 05/08/17 14:08 Librium PO Q8 PRN Other Enoxaparin Sodium 30 mg 05/09/17 10:00 05/12/17 09:09 Lovenox SC Not Given DAILY DION Famotidine 20 mg 05/09/17 10:00 05/12/17 09:07 Pepcid PO 20 mg DAILY DION Administration Past Psychiatric History - Past Psychiatric History Previous Treatment History: Inpatient Pertinent Medical Hx (Current Medical&Sleep Prob, Allergies): Allergies Allergy/AdvReac Type Severity Reaction Status Date / Time No Known Allergies Allergy Verified 05/08/17 08:48 No Known Home Med 04/23/17 Review of Systems - Review of Systems All systems: reviewed and no additional remarkable complaints except - Constitutional Constitutional: Weakness - EENT Ears: Decreased Hearing - Musculoskeletal Musculoskeletal: As Par HPI, Back Pain, Limited Range of Motion, Muscle Weakness , Stiffness - Psychiatric Psychiatric: As Per HPI, Abnormal Sleep Pattern, Anxiety, Depression, Difficulty Concentrating, Hopelessness, Irritability. absent: Paranoia Mental Status Examination - Personal Presentation Personal Presentation: Looks older than stated age - Affect Affect: Blunted - Motor Activity Motor Activity: Calm - Reliability in Providing Information Reliability in Providing Information: Fair - Speech Speech: Organized - Mood Mood: Depressed, Anxious - Formal Thought Process Formal Thought Process: No Impairment - Obsessions/Compulsions Obsessions: No Compulsions: No - Cognitive Functions Orientation: Person, Place, Situation, Time Sensorium: Drowsy Attention/Concentration: Attentive Abstract Thinking: Woodward Estimate of Intelligence: Below average Judgement: Imparied, as evidence by: Poor judgement, Imparied, as evidence by: Lack of insight into illness - Risk Risk: Withdrawal, Diminished functioning - Limitations Limitations: Other (Homeless) DSM 5 DX - DSM 5 DSM 5 Diagnosis: Alcohol Use Disorder - Severe major depressive disorder recurrent moderate - Recommended/Plan of Treatment Treatment Recommendations and Plan of Treatment: Alcohol use disorder and withdrawal Librium detox As needed meds and vitamins IL for abstinence and CBT for relapse prevention Support and psychoeducation Refer to aftercare Major depressive disorder recurrent moderate CBT and psychoeducation Trazodone 50 mg by mouth daily at bedtime Zoloft 50 mg daily Projected ELOS: 3-5 days - Smoking Cessation Smoking Cessation Initiated: No
--- NOTE | 2017-05-12 14:43 | CP.PCM.PN ---
<Monico Cuenca - Last Filed: 05/12/17 17:12> Subjective - Date & Time of Evaluation Date of Evaluation: 05/12/17 Time of Evaluation: 07:45 - Subjective Subjective: Medicine Note ( PGY 1) : Dr. Elizabeth Bowers's service Patient was seen and examined at bedside. Patient was resting comfortably in bed and has no new complaints. Patient continues to report Right elbow pain but denies chest pain, sob, palpitations, nausea, vomiting, abdominal pain. Patient continues to refuse to wear arm sling. Objective - Vital Signs/Intake and Output Vital Signs (last 24 hours): Temp Pulse Resp BP Pulse Ox 97.9 F 69 20 133/85 96 05/12/17 07:00 05/12/17 07:00 05/12/17 07:00 05/12/17 07:00 05/12/17 07:00 Intake and Output: 05/12/17 05/12/17 06:59 18:59 Intake Total 580 Output Total 350 Balance 230 - Medications Medications: Current Medications Acetaminophen (Tylenol 325mg Tab) 650 mg PO Q6 PRN PRN Reason: Pain, Mild (1-3) Last Admin: 05/12/17 06:19 Dose: 650 mg Chlordiazepoxide (Librium) 5 mg PO Q8 PRN PRN Reason: Other Enoxaparin Sodium (Lovenox) 30 mg SC DAILY [facility] Last Admin: 05/12/17 09:09 Dose: Not Given Famotidine (Pepcid) 20 mg PO DAILY [facility] Last Admin: 05/12/17 09:07 Dose: 20 mg - Labs Labs: 05/12/17 11:28 05/12/17 11:28 - Constitutional Appears: Well, No Acute Distress Assessment and Plan (1) Right elbow pain Assessment & Plan: Stable Orthopedics Consult, Dr. Villa-----> Help appreciated * As per conversation between weekend care team and Dr. Villa, it was recommended that patient's arm needs to be placed in a sling and to follow-up outpatient * Patient continues to refuse to wear arm sling after discussion on how important it is to keep is arm immobilized. As per physical therapy: Patient strongly refused to use L wide base quad cane but instead holds on bed rail with his left hand. Maintain non-weight based Right upper extremity until clearance by orthopedics. Patient's physical therapy is recommending a wheelchair as patient should maintain a non-weight bearing RUE therefore he cannot use is rolling walker or a platform walker. A second opinion as been ordered by Dr. Roni Bowers for evaluation by Orthopedic Surgeon Dr. Martin * No surgical intervention at this time and recommends an arm sling Medications: * Acetaminophen 650mg PO Q6 prn for pain control * Toradol 30mg IV Q6 prn for pain control * Physical and occupation therapy evaluation and treatment Imaging: Right Elbow X-ray (12/19/16): Limited assessment due to chronic dislocation and advanced degenerative changes. No definite evidence of acute displaced fracture. Re- demonstration of dislocation of the proximal radius head. If clinically warranted further assessment by CT may be obtained. Right Elbow X-ray (05/08/17): Posterior dislocation radial head, chronic. Minimally displaced fracture proximal radial diaphysis not evident on earlier examinations. Limited examination. Upper extremity CT (05/11/17): * Posterior dislocation of the radial head in relationship to the capitellum. Cortical irregularity and deformity of the radial head. 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 Mild distraction at the fracture site. * Prominent degenerative changes at the articulation of the distal humerus and ulna with joint space narrowing, subchondral sclerosis, subchondral cyst formation, and bony deformity and cortical irregularity at the level of the coronoid process as well as the anterior aspect of the distal medial humerus. This may be better evaluated with MRI for acute injury. * Rounded ossific density seen at the posterior aspect of the elbow joint space adjacent to the radial head which may represent large loose osteochondral body versus avulsion injury. * Additional questionable loose osteochondral bodies and/or avulsed fracture fragments at the anterior aspects of the elbow joint space. * Small to moderate elbow joint effusion. Status: Acute (2) Urinary frequency Assessment & Plan: Resolved UA on admission: * Negative Status: Acute (3) History of alcohol abuse Assessment & Plan: Psychiatry Consult, Dr. Daugherty---> Help appreciated * Continue medical management as per psychiatry recommendation Continue Librium 5mg PO Q6 PRN Folic acid 1mg PO daily Multivitamins 1 Tab PO daily Thiamine 100mg PO daily Negative for signs of alcohol withdraw On admission: UDS and alcohol levels: Negative Status: Acute (4) Prophylactic measure Assessment & Plan: SCD GI prophylaxis: protonix 20mg PO daily DVT Prophylaxis: Lovenox 30mg SC daily Status: Acute <Bowers,Roni Shine - Last Filed: 05/13/17 08:08> Objective - Vital Signs/Intake and Output Vital Signs (last 24 hours): Temp Pulse Resp BP Pulse Ox 97.1 F L 68 20 138/81 98 05/12/17 23:34 05/12/17 23:34 05/12/17 23:34 05/12/17 23:34 05/12/17 23:34 Intake and Output: 05/13/17 05/13/17 06:59 18:59 Intake Total 500 Balance 500 - Medications Medications: Current Medications Acetaminophen (Tylenol 325mg Tab) 650 mg PO Q6 PRN PRN Reason: Pain, Mild (1-3) Last Admin: 05/13/17 03:10 Dose: 650 mg Chlordiazepoxide (Librium) 5 mg PO Q8 PRN PRN Reason: Other Enoxaparin Sodium (Lovenox) 30 mg SC DAILY [facility] Last Admin: 05/12/17 09:09 Dose: Not Given Famotidine (Pepcid) 20 mg PO DAILY [facility] Last Admin: 05/12/17 09:07 Dose: 20 mg Folic Acid (Folic Acid) 1 mg PO DAILY [facility] Last Admin: 05/12/17 16:03 Dose: 1 mg Multivitamins (Hexavitamin) 1 tab PO DAILY [facility] Last Admin: 05/12/17 16:02 Dose: 1 tab Thiamine HCl (Vitamin B1 Tab) 100 mg PO DAILY [facility] Last Admin: 05/12/17 16:02 Dose: 100 mg - Labs Labs: 05/12/17 11:28 05/12/17 11:28 Attending/Attestation - Attestation I have personally seen and examined this patient.: Yes I have fully participated in the care of the patient.: Yes I have reviewed all pertinent clinical information, including history, physical exam and plan: Yes Notes (Text): 05/13/17 07:09 Patient was seen and attempted to examine at 12:10 PM Patient would not answer review of systems questions other than "I have to take a shit". I contacted the GENERATOR WORKER in the room to help the patient use the bathroom. Patient refused exam. CT Right Elbow 05/11/17 showed posterior dislocation of the radial head, transverse oblique fracture with fracture nonunion seen through the proximal radius at level of the diaphysis. I went over the results with Orthopedic Surgeon Dr. Damon and patient is not a surgical candidate considering his history of chronic alcohol abuse, homelessness, and failure to follow with prescribed treatment (he continues to not follow instructions to wear right arm sling). He has been denied by all of the [facility] in [place] and refuses to go to [facility] outside of [place]. I spoke with Physical Therapist Ginette and she did not recommend Platform Walker as recommended by Dr. Damon. Patient normally walks with a walker as his baseline and there was concern of risk of fall considering the chronic and acute findings for his Right Elbow. Ginette recommend wheelchair. I will speak with Rock Picker about making arrangements for wheelchair and discharge to snf on 05/13/17. Roni Bowers D.O.
[2017-05-12] MEDS: Multiple Vitamins Tab PO SCH (16:02)
[2017-05-13 07:31] LABS: BASO % 0.5 % (0.0-2.0); EOS # 0.2 K/uL (0.0-0.7); EOS % 3.8 % (0.0-4.0); HEMATOCRIT 36.5 % (35.0-51.0); LYMPH # 1.4 K/uL (1.0-4.3); LYMPH % 22.4 % (20.0-40.0); MEAN CELL VOLUME 88.4 fL (80.0-94.0); MEAN CORPUSCULAR HEMOGLOBIN 30.6 pg (27.0-31.0); MEAN CORPUSCULAR HGB CONC 34.6 g/dL (33.0-37.0); MEAN PLATELET VOLUME 7.5 fL (7.2-11.7); MONO # 0.4 K/uL (0.0-0.8); MONO % 6.9 % (0.0-10.0); NRBC % 0.1 % (0.0-2.0); WHITE BLOOD COUNT 6.4 K/uL (4.8-10.8)
[2017-05-13 08:25] LABS: CHLORIDE 95 mmol/L (98-107); POTASSIUM 4.2 mmol/L (3.6-5.2); SODIUM 130 mmol/L (132-148)
[2017-05-13 08:27] LABS: AST/SGOT 20 U/L (17-59); BILIRUBIN,TOTAL 0.4 mg/dL (0.2-1.3); CARBON DIOXIDE 22 mmol/L (22-30); GFR AFRICAN-AMERICAN > 60
[2017-05-13 08:28] LABS: ALB/GLOB RATIO 1.2 (1.0-2.1); ALKALINE PHOSPHATASE 77 U/L (38-126); ALT/SGPT 23 U/L (21-72); BLOOD UREA NITROGEN 12 mg/dL (9-20); CALCIUM 8.3 mg/dl (8.6-10.4); GLUCOSE,RANDOM 84 mg/dL (75-110); PHOSPHOROUS 3.7 mg/dL (2.5-4.5); TOTAL PROTEIN 5.9 g/dL (6.3-8.3)
[2017-05-13 08:29] LABS: MAGNESIUM 1.6 mg/dL (1.6-2.3)
[2017-05-13] MEDS: Multiple Vitamins Tab PO SCH (10:23)
[2017-05-13] MEDS: Enoxaparin 30 mg Syringe SC SCH (10:26)
--- NOTE | 2017-05-13 16:02 | CP.PCM.PN ---
<Monico Cuenca E - Last Filed: 05/13/17 18:58> Subjective - Date & Time of Evaluation Date of Evaluation: 05/13/17 Time of Evaluation: 07:20 - Subjective Subjective: Medicine Note ( PGY 1) : Dr. Elizabeth Bowers's service Patient was seen and examined at bedside. Patient was resting comfortably in bed and has no new complaints. Patient continues to report Right elbow pain but denies chest pain, sob, palpitations, nausea, vomiting, abdominal pain. Patient continues to refuse to wear arm sling. Patient was uncooperative during physical therapy session. Objective - Vital Signs/Intake and Output Vital Signs (last 24 hours): Temp Pulse Resp BP Pulse Ox 98.3 F 82 20 110/65 97 05/13/17 15:41 05/13/17 15:41 05/13/17 15:41 05/13/17 15:41 05/13/17 15:41 Intake and Output: 05/13/17 05/13/17 06:59 18:59 Intake Total 500 200 Output Total 400 Balance 500 -200 - Medications Medications: Current Medications Acetaminophen (Tylenol 325mg Tab) 650 mg PO Q6 PRN PRN Reason: Pain, Mild (1-3) Last Admin: 05/13/17 15:33 Dose: 650 mg Chlordiazepoxide (Librium) 5 mg PO Q8 PRN PRN Reason: Other Enoxaparin Sodium (Lovenox) 30 mg SC DAILY [facility] Last Admin: 05/13/17 10:26 Dose: Not Given Famotidine (Pepcid) 20 mg PO DAILY [facility] Last Admin: 05/13/17 10:23 Dose: 20 mg Folic Acid (Folic Acid) 1 mg PO DAILY [facility] Last Admin: 05/13/17 10:23 Dose: 1 mg Multivitamins (Hexavitamin) 1 tab PO DAILY [facility] Last Admin: 05/13/17 10:23 Dose: 1 tab Sertraline HCl (Zoloft) 50 mg PO DAILY [facility] Last Admin: 05/13/17 14:49 Dose: Not Given Thiamine HCl (Vitamin B1 Tab) 100 mg PO DAILY [facility] Last Admin: 05/13/17 10:23 Dose: 100 mg Trazodone HCl (Desyrel) 50 mg PO [facility] - Labs Labs: 05/13/17 06:44 05/13/17 06:44 - Constitutional Appears: Well, No Acute Distress - Head Exam Head Exam: ATRAUMATIC - Eye Exam Eye Exam: EOMI, Normal appearance - ENT Exam ENT Exam: Mucous Membranes Moist, Normal Exam - Respiratory Exam Respiratory Exam: Clear to Ausculation Bilateral, NORMAL BREATHING PATTERN - Cardiovascular Exam Cardiovascular Exam: REGULAR RHYTHM, +S1, +S2 - GI/Abdominal Exam GI & Abdominal Exam: Soft, Normal Bowel Sounds - Extremities Exam Extremities Exam: Normal Inspection. absent: Pedal Edema, Tenderness - Neurological Exam Neurological Exam: Alert, Awake, Oriented x3 - Psychiatric Exam Psychiatric exam: Agitated, Normal Affect - Skin Skin Exam: Dry, Normal Color, Warm Assessment and Plan (1) Right elbow pain Assessment & Plan: Stable Orthopedics Consult, Dr. Villa-----> Help appreciated * As per conversation between weekend care team and Dr. Villa, it was recommended that patient's arm needs to be placed in a sling and to follow-up outpatient * Patient continues to refuse to wear arm sling after discussion on how important it is to keep is arm immobilized and recommendation of a platform walker A second opinion as been ordered by Dr. Roni Bowers for evaluation by Orthopedic Surgeon Dr. Martin * No surgical intervention at this time and recommends an arm sling As per physical therapy: Patient strongly refused to use L wide base quad cane but instead holds on bed rail with his left hand. Maintain non-weight based Right upper extremity until clearance by orthopedics. Patient's physical therapy is recommending a wheelchair as patient should maintain a non-weight bearing RUE therefore he cannot use is rolling walker or a platform walker. * (05/13/17): As per physical therapist, patient was initially cooperative at the beginning of training session on wheelchair, however, patient became agitated and frustrated when instructed on how to do self propulsion of wheel chair, stating " I cannot, I am disabled." Medications: * Acetaminophen 650mg PO Q6 prn for pain control * Toradol 30mg IV Q6 prn for pain control * Physical and occupation therapy evaluation and treatment Imaging: Right Elbow X-ray (12/19/16): Limited assessment due to chronic dislocation and advanced degenerative changes. No definite evidence of acute displaced fracture. Re- demonstration of dislocation of the proximal radius head. If clinically warranted further assessment by CT may be obtained. Right Elbow X-ray (05/08/17): Posterior dislocation radial head, chronic. Minimally displaced fracture proximal radial diaphysis not evident on earlier examinations. Limited examination. Upper extremity CT (05/11/17): * Posterior dislocation of the radial head in relationship to the capitellum. Cortical irregularity and deformity of the radial head. 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 Mild distraction at the fracture site. * Prominent degenerative changes at the articulation of the distal humerus and ulna with joint space narrowing, subchondral sclerosis, subchondral cyst formation, and bony deformity and cortical irregularity at the level of the coronoid process as well as the anterior aspect of the distal medial humerus. This may be better evaluated with MRI for acute injury. * Rounded ossific density seen at the posterior aspect of the elbow joint space adjacent to the radial head which may represent large loose osteochondral body versus avulsion injury. * Additional questionable loose osteochondral bodies and/or avulsed fracture fragments at the anterior aspects of the elbow joint space. * Small to moderate elbow joint effusion. Status: Acute (2) Urinary frequency Assessment & Plan: Resolved UA on admission: * Negative Status: Acute (3) Major depressive disorder Assessment & Plan: Psychiatry on board ( Dr. Daugherty)----> Help appreciated * Medical management as per psychiatry Medication: * Zoloft 50mg PO daily Status: Acute (4) History of alcohol abuse Assessment & Plan: Psychiatry Consult, Dr. Daugherty---> Help appreciated * Continue medical management as per psychiatry recommendation Continue Librium 5mg PO Q6 PRN Folic acid 1mg PO daily Multivitamins 1 Tab PO daily Thiamine 100mg PO daily Negative for signs of alcohol withdraw On admission: UDS and alcohol levels: Negative Status: Acute (5) Prophylactic measure Assessment & Plan: SCD GI prophylaxis: protonix 20mg PO daily DVT Prophylaxis: Lovenox 30mg SC daily Status: Acute Status: Acute <Roni Bowers - Last Filed: 05/13/17 20:51> Objective - Vital Signs/Intake and Output Vital Signs (last 24 hours): Temp Pulse Resp BP Pulse Ox 98.3 F 82 20 110/65 97 05/13/17 15:41 05/13/17 15:41 05/13/17 15:41 05/13/17 15:41 05/13/17 15:41 Intake and Output: 05/13/17 05/14/17 18:59 06:59 Intake Total 200 Output Total 400 Balance -200 - Medications Medications: Current Medications Acetaminophen (Tylenol 325mg Tab) 650 mg PO Q6 PRN PRN Reason: Pain, Mild (1-3) Last Admin: 05/13/17 15:33 Dose: 650 mg Chlordiazepoxide (Librium) 5 mg PO Q8 PRN PRN Reason: Other Enoxaparin Sodium (Lovenox) 30 mg SC DAILY [facility] Last Admin: 05/13/17 10:26 Dose: Not Given Famotidine (Pepcid) 20 mg PO DAILY [facility] Last Admin: 05/13/17 10:23 Dose: 20 mg Folic Acid (Folic Acid) 1 mg PO DAILY [facility] Last Admin: 05/13/17 10:23 Dose: 1 mg Multivitamins (Hexavitamin) 1 tab PO DAILY [facility] Last Admin: 05/13/17 10:23 Dose: 1 tab Sertraline HCl (Zoloft) 50 mg PO DAILY [facility] Last Admin: 05/13/17 14:49 Dose: Not Given Thiamine HCl (Vitamin B1 Tab) 100 mg PO DAILY [facility] Last Admin: 05/13/17 10:23 Dose: 100 mg Trazodone HCl (Desyrel) 50 mg PO HS [facility] - Labs Labs: 05/13/17 06:44 05/13/17 06:44 Attending/Attestation - Attestation I have personally seen and examined this patient.: Yes I have fully participated in the care of the patient.: Yes I have reviewed all pertinent clinical information, including history, physical exam and plan: Yes Notes (Text): 05/13/17 20:46 Patient was seen and examined by me at 4:30 PM I discussed patient's Psychiatric status with Psychiatrist Dr. Daugherty who did not feel that the patient was Suicidal but that patient would say that he is in order to continue to stay in the hospital as Dr. Daugherty is very familiar with this patient as he has multiple admissions and visits to this ER. Despite this I would like patient to be evaluated for involuntary admission to a Psychiatry Facility. Therefore I have spoken with Con[employer] Malick and she will help to arrang evaluation by [facility] Psychiatry on . If he is accepted by [facility] then he will be discharged there. If he does not qualify for Involuntary Admission then he will discharged. Roni Bowers D.O.
[2017-05-14 08:20] LABS: BASO % 0.6 % (0.0-2.0); EOS # 0.2 K/uL (0.0-0.7); EOS % 3.2 % (0.0-4.0); HEMATOCRIT 37.6 % (35.0-51.0); LYMPH # 1.2 K/uL (1.0-4.3); LYMPH % 20.4 % (20.0-40.0); MEAN CELL VOLUME 88.3 fL (80.0-94.0); MEAN CORPUSCULAR HEMOGLOBIN 30.3 pg (27.0-31.0); MEAN CORPUSCULAR HGB CONC 34.3 g/dL (33.0-37.0); MEAN PLATELET VOLUME 7.6 fL (7.2-11.7); MONO # 0.4 K/uL (0.0-0.8); MONO % 6.7 % (0.0-10.0); RED CELL DISTRIBUTION WIDTH 14.1 % (11.5-14.5); WHITE BLOOD COUNT 5.8 K/uL (4.8-10.8)
[2017-05-14 08:33] LABS: CHLORIDE 95 mmol/L (98-107); POTASSIUM 4.1 mmol/L (3.6-5.2); SODIUM 132 mmol/L (132-148)
[2017-05-14 08:35] LABS: BILIRUBIN,TOTAL 0.5 mg/dL (0.2-1.3); CARBON DIOXIDE 25 mmol/L (22-30); GFR AFRICAN-AMERICAN > 60
[2017-05-14 08:36] LABS: ALB/GLOB RATIO 1.2 (1.0-2.1); ALKALINE PHOSPHATASE 78 U/L (38-126); ALT/SGPT 23 U/L (21-72); AST/SGOT 22 U/L (17-59); BLOOD UREA NITROGEN 11 mg/dL (9-20); CALCIUM 8.4 mg/dl (8.6-10.4); GLUCOSE,RANDOM 90 mg/dL (75-110); MAGNESIUM 1.6 mg/dL (1.6-2.3); PHOSPHOROUS 3.2 mg/dL (2.5-4.5)
[2017-05-14] MEDS: Enoxaparin 30 mg Syringe SC SCH (09:32)
[2017-05-14] MEDS: Multiple Vitamins Tab PO SCH (09:33)
--- NOTE | 2017-05-14 11:00 | PCM.PYCHPN ---
Psychiatric Progress Note - Psychiatric Progress Note Patient seen today, length of contact: 16 min Patient Chief Complaint: I relapsed on drinking Problems Identified/Issues Discussed: Patient seen and evaluated, chart reviewed and discussed with the nurse. The patient reports improvement in his mood and denies any feelings of hopelessness and helplessness. He reports improvement in his sleep, but he remained isolated. The pt is compliant with medications and denies any side-effects. Symptoms are improving but needs more time to stabilize. After care discussed, support and psychoeducation given. Medication Change: No Medical Record Reviewed: Yes Mental Status Examination - Cognitive Function Orientation: Person, Place, Situation, Time Memory: Intact Attention: WNL Concentration: WNL Association: WNL Fund of Knowledge: WNL - Mood Mood: Anxious - Affect Affect: Blunted - Speech Speech: Soft - Formal Thought Process Formal Thought Process: No Impairment - Suicidal Ideation Suicidal Ideation: No - Homicidal Ideation Homicidal Ideation: No Goal/Treatment Plan - Goal/Treatment Plan Need for Continued Stay: Discharge may exacerbated symptoms, Severe functional impairment Progress Toward Problem(s) and Goals/Treatment Plan: Alcohol use disorder and withdrawal Librium detox As needed meds and vitamins [place] for abstinence and CBT for relapse prevention Support and psychoeducation Refer to aftercare Major depressive disorder recurrent moderate CBT and psychoeducation Trazodone 50 mg by mouth daily at bedtime Zoloft 50 mg daily Patient psychiatric stable for discharge and follow-up with outpatient clinic - Smoking Cessation Smoking Cessation Initiated: No
--- NOTE | 2017-05-14 11:59 | CP.PCM.PN ---
<Monico Cuenca E - Last Filed: 05/14/17 17:54> Subjective - Date & Time of Evaluation Date of Evaluation: 05/14/17 Time of Evaluation: 07:45 - Subjective Subjective: Medicine Note (PGY 1): Dr. Elizabeth Anderson's service Patient was seen and examined at bedside. Patient was resting comfortably in bed and has no new complaints. Patient continues to report right elbow pain but denies chest pain, sob, palpitations, nausea, vomiting, abdominal pain. Patient continues to refuse to wear arm sling and remains uncooperative. Objective - Vital Signs/Intake and Output Vital Signs (last 24 hours): Temp Pulse Resp BP Pulse Ox 98 F 78 20 112/70 97 05/14/17 00:00 05/14/17 00:00 05/14/17 00:00 05/14/17 00:00 05/14/17 00:00 Intake and Output: 05/14/17 05/14/17 06:59 18:59 Intake Total 740 Output Total 800 Balance -60 - Medications Medications: Current Medications Acetaminophen (Tylenol 325mg Tab) 650 mg PO Q6 PRN PRN Reason: Pain, Mild (1-3) Last Admin: 05/14/17 11:41 Dose: 650 mg Chlordiazepoxide (Librium) 5 mg PO Q8 PRN PRN Reason: Other Enoxaparin Sodium (Lovenox) 30 mg SC DAILY [facility] Last Admin: 05/14/17 09:32 Dose: Not Given Famotidine (Pepcid) 20 mg PO DAILY [facility] Last Admin: 05/14/17 09:32 Dose: Not Given Folic Acid (Folic Acid) 1 mg PO DAILY [facility] Last Admin: 05/14/17 09:32 Dose: Not Given Multivitamins (Hexavitamin) 1 tab PO DAILY [facility] Last Admin: 05/14/17 09:33 Dose: Not Given Sertraline HCl (Zoloft) 50 mg PO DAILY [facility] Last Admin: 05/14/17 09:33 Dose: Not Given Thiamine HCl (Vitamin B1 Tab) 100 mg PO DAILY [facility] Last Admin: 05/14/17 09:33 Dose: Not Given Trazodone HCl (Desyrel) 50 mg PO HS [facility] Last Admin: 05/13/17 21:15 Dose: Not Given - Labs Labs: 05/14/17 08:11 05/14/17 08:11 - Constitutional Appears: Well, No Acute Distress - Eye Exam Eye Exam: EOMI, Normal appearance - ENT Exam ENT Exam: Mucous Membranes Moist - Respiratory Exam Respiratory Exam: Clear to Ausculation Bilateral, NORMAL BREATHING PATTERN - Cardiovascular Exam Cardiovascular Exam: REGULAR RHYTHM, +S1, +S2 - GI/Abdominal Exam GI & Abdominal Exam: Soft, Normal Bowel Sounds - Extremities Exam Extremities Exam: Normal Capillary Refill. absent: Pedal Edema, Tenderness - Neurological Exam Neurological Exam: Alert - Psychiatric Exam Psychiatric exam: Agitated - Skin Skin Exam: Dry, Normal Color, Warm Assessment and Plan (1) Right elbow pain Assessment & Plan: Stable Orthopedics Consult, Dr. Villa-----> Help appreciated * As per conversation between weekend care team and Dr. Villa, it was recommended that patient's arm needs to be placed in a sling and to follow-up outpatient * Patient continues to refuse to wear arm sling after discussion on how important it is to keep is arm immobilized and recommendation of a platform walker A second opinion as been ordered by Dr. Roni Anderson for evaluation by Orthopedic Surgeon Dr. Martin * No surgical intervention at this time and recommends an arm sling As per physical therapy: Patient strongly refused to use L wide base quad cane but instead holds on bed rail with his left hand. Maintain non-weight based Right upper extremity until clearance by orthopedics. Patient's physical therapy is recommending a wheelchair as patient should maintain a non-weight bearing RUE therefore he cannot use is rolling walker or a platform walker. * (05/13/17): As per physical therapist, patient was initially cooperative at the beginning of training session on wheelchair, however, patient became agitated and frustrated when instructed on how to do self propulsion of wheel chair, stating " I cannot, I am disabled." Medications: * Acetaminophen 650mg PO Q6 prn for pain control * Toradol 30mg IV Q6 prn for pain control * Physical and occupation therapy evaluation and treatment Imaging: Right Elbow X-ray (12/19/16): Limited assessment due to chronic dislocation and advanced degenerative changes. No definite evidence of acute displaced fracture. Re- demonstration of dislocation of the proximal radius head. If clinically warranted further assessment by CT may be obtained. Right Elbow X-ray (05/08/17): Posterior dislocation radial head, chronic. Minimally displaced fracture proximal radial diaphysis not evident on earlier examinations. Limited examination. Upper extremity CT (05/11/17): * Posterior dislocation of the radial head in relationship to the capitellum. Cortical irregularity and deformity of the radial head. 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 Mild distraction at the fracture site. * Prominent degenerative changes at the articulation of the distal humerus and ulna with joint space narrowing, subchondral sclerosis, subchondral cyst formation, and bony deformity and cortical irregularity at the level of the coronoid process as well as the anterior aspect of the distal medial humerus. This may be better evaluated with MRI for acute injury. * Rounded ossific density seen at the posterior aspect of the elbow joint space adjacent to the radial head which may represent large loose osteochondral body versus avulsion injury. * Additional questionable loose osteochondral bodies and/or avulsed fracture fragments at the anterior aspects of the elbow joint space. * Small to moderate elbow joint effusion. Status: Acute (2) Urinary frequency Assessment & Plan: Resolved UA on admission: * Negative Status: Acute (3) Major depressive disorder Assessment & Plan: Psychiatry on board ( Dr. Daugherty)----> Help appreciated * Medical management as per psychiatry * As per discussion between Dr. Elizabeth anderson and psych regarding patient's mental health, patient has been cleared for discharge by Dr. Daugherty Medication: * Zoloft 50mg PO daily Status: Acute (4) History of alcohol abuse Assessment & Plan: Psychiatry Consult, Dr. Daugherty---> Help appreciated * Continue medical management as per psychiatry recommendation Continue Librium 5mg PO Q6 PRN Folic acid 1mg PO daily Multivitamins 1 Tab PO daily Thiamine 100mg PO daily Negative for signs of alcohol withdraw On admission: UDS and alcohol levels: Negative Status: Acute (5) Prophylactic measure Assessment & Plan: SCD GI prophylaxis: protonix 20mg PO daily DVT Prophylaxis: Lovenox 30mg SC daily Status: Acute <Roni Anderson - Last Filed: 05/15/17 18:01> Objective - Vital Signs/Intake and Output Vital Signs (last 24 hours): Temp Pulse Resp BP Pulse Ox 98.2 F 89 20 109/75 98 05/15/17 04:00 05/15/17 04:00 05/15/17 04:00 05/15/17 04:00 05/15/17 04:00 Intake and Output: 05/15/17 05/15/17 06:59 18:59 Intake Total 240 Balance 240 - Labs Labs: 05/15/17 07:14 05/15/17 07:14 Attending/Attestation - Attestation I have personally seen and examined this patient.: Yes I have fully participated in the care of the patient.: Yes I have reviewed all pertinent clinical information, including history, physical exam and plan: Yes Notes (Text): 05/15/17 18:00 Patient was seen and examined on 05/14/17. Exam, assessment and plan were thoroughly gone over with the resident. Roni Anderson D.O.
[2017-05-15 06:36] VITALS: BP 109/75; PULSE 89; RESP 20; TEMP 98.2; O2SAT 98
[2017-05-15 07:33] LABS: BASO % 0.5 % (0.0-2.0); EOS # 0.3 K/uL (0.0-0.7); EOS % 4.3 % (0.0-4.0); HEMATOCRIT 37.4 % (35.0-51.0); LYMPH # 1.5 K/uL (1.0-4.3); LYMPH % 23.1 % (20.0-40.0); MEAN CELL VOLUME 89.1 fL (80.0-94.0); MEAN CORPUSCULAR HEMOGLOBIN 30.2 pg (27.0-31.0); MEAN CORPUSCULAR HGB CONC 33.9 g/dL (33.0-37.0); MEAN PLATELET VOLUME 7.3 fL (7.2-11.7); MONO # 0.4 K/uL (0.0-0.8); MONO % 6.5 % (0.0-10.0); RED CELL DISTRIBUTION WIDTH 14.1 % (11.5-14.5); WHITE BLOOD COUNT 6.4 K/uL (4.8-10.8)
[2017-05-15 07:39] LABS: CHLORIDE 95 mmol/L (98-107)
[2017-05-15 07:40] LABS: SODIUM 132 mmol/L (132-148)
[2017-05-15 07:42] LABS: ALB/GLOB RATIO 1.2 (1.0-2.1); ALKALINE PHOSPHATASE 74 U/L (38-126); ALT/SGPT 23 U/L (21-72); AST/SGOT 19 U/L (17-59); BILIRUBIN,TOTAL 0.5 mg/dL (0.2-1.3); BLOOD UREA NITROGEN 11 mg/dL (9-20); CARBON DIOXIDE 25 mmol/L (22-30); GFR AFRICAN-AMERICAN > 60
[2017-05-15 07:43] LABS: CALCIUM 8.3 mg/dl (8.6-10.4); GLUCOSE,RANDOM 80 mg/dL (75-110); MAGNESIUM 1.5 mg/dL (1.6-2.3); PHOSPHOROUS 3.4 mg/dL (2.5-4.5)
[2017-05-15] MEDS: Enoxaparin 30 mg Syringe SC SCH (09:51)
[2017-05-15] MEDS: Multiple Vitamins Tab PO SCH (09:51)
--- NOTE | 2017-05-15 16:50 | CP.PCM.DIS ---
Provider - Provider Date of Admission: 05/09/17 10:14 Attending physician: Roni Bowers MD Time Spent in preparation of Discharge (in minutes): 45 Diagnosis - Discharge Diagnosis (1) Right elbow pain Status: Acute (2) Urinary frequency Status: Acute (3) Major depressive disorder Status: Acute (4) History of alcohol abuse Status: Acute (5) Prophylactic measure Status: Acute Hospital Course - Lab Results Lab Results: Most Recent Lab Values WBC 6.4 K/uL (4.8-10.8) 05/15/17 07:14 RBC 4.20 Mil/uL (4.40-5.90) L 05/15/17 07:14 Hgb 12.7 g/dL (12.0-18.0) 05/15/17 07:14 Hct 37.4 % (35.0-51.0) 05/15/17 07:14 MCV 89.1 fL (80.0-94.0) 05/15/17 07:14 MCH 30.2 pg (27.0-31.0) 05/15/17 07:14 MCHC 33.9 g/dL (33.0-37.0) 05/15/17 07:14 RDW 14.1 % (11.5-14.5) 05/15/17 07:14 Plt Count 298 K/uL (130-400) 05/15/17 07:14 MPV 7.3 fL (7.2-11.7) 05/15/17 07:14 Neut % (Auto) 65.6 % (50.0-75.0) 05/15/17 07:14 Lymph % (Auto) 23.1 % (20.0-40.0) 05/15/17 07:14 Bent % (Auto) 6.5 % (0.0-10.0) 05/15/17 07:14 Eos % (Auto) 4.3 % (0.0-4.0) H 05/15/17 07:14 Baso % (Auto) 0.5 % (0.0-2.0) 05/15/17 07:14 Neut # 4.2 K/uL (1.8-7.0) 05/15/17 07:14 Lymph # 1.5 K/uL (1.0-4.3) 05/15/17 07:14 Bent # 0.4 K/uL (0.0-0.8) 05/15/17 07:14 Eos # 0.3 K/uL (0.0-0.7) 05/15/17 07:14 Baso # 0.0 K/uL (0.0-0.2) 05/15/17 07:14 Sodium 132 mmol/L (132-148) 05/15/17 07:14 Potassium 4.0 mmol/L (3.6-5.2) 05/15/17 07:14 Chloride 95 mmol/L (98-107) L 05/15/17 07:14 Carbon Dioxide 25 mmol/L (22-30) 05/15/17 07:14 Anion Gap 16 (10-20) 05/15/17 07:14 BUN 11 mg/dL (9-20) 05/15/17 07:14 Creatinine 0.5 MG/DL (0.8-1.5) L 05/15/17 07:14 Est GFR ( Amer) > 60 05/15/17 07:14 Est GFR (Non-Af Amer) > 60 05/15/17 07:14 Random Glucose 80 mg/dL (75-110) 05/15/17 07:14 Calcium 8.3 mg/dl (8.6-10.4) L 05/15/17 07:14 Phosphorus 3.4 mg/dL (2.5-4.5) 05/15/17 07:14 Magnesium 1.5 mg/dL (1.6-2.3) L 05/15/17 07:14 Total Bilirubin 0.5 mg/dL (0.2-1.3) 05/15/17 07:14 AST 19 U/L (17-59) 05/15/17 07:14 ALT 23 U/L (21-72) 05/15/17 07:14 Alkaline Phosphatase 74 U/L (38-126) 05/15/17 07:14 Total Protein 6.0 g/dL (6.3-8.3) L 05/15/17 07:14 Albumin 3.3 g/dL (3.5-5.0) L 05/15/17 07:14 Globulin 2.7 gm/dL (2.2-3.9) 05/15/17 07:14 Albumin/Globulin Ratio 1.2 (1.0-2.1) 05/15/17 07:14 Urine Color Yellow (YELLOW) 05/08/17 16:06 Urine Clarity Clear (Clear) 05/08/17 16:06 Urine pH 6.0 (5.0-8.0) 05/08/17 16:06 Ur Specific [place] 1.020 (1.003-1.030) 05/08/17 16:06 Urine Protein Negative mg/dL (NEGATIVE) 05/08/17 16:06 Urine Glucose (UA) Normal mg/dL (Normal) 05/08/17 16:06 Urine Ketones 2+ mg/dL (NEGATIVE) H 05/08/17 16:06 Urine Blood Negative (NEGATIVE) 05/08/17 16:06 Urine Nitrate Negative (NEGATIVE) 05/08/17 16:06 Urine Bilirubin Negative (NEGATIVE) 05/08/17 16:06 Urine Urobilinogen 4.0 mg/dL (0.2-1.0) 05/08/17 16:06 Ur Leukocyte Esterase Neg Chloe/uL (Negative) 05/08/17 16:06 Urine WBC (Auto) 2 /hpf (0-5) 05/08/17 16:06 Urine RBC (Auto) 1 /hpf (0-3) 05/08/17 16:06 Urine Opiates Screen Negative (NEGATIVE) 05/08/17 13:23 Urine Methadone Screen Negative (NEGATIVE) 05/08/17 13:23 Ur Barbiturates Screen Negative (NEGATIVE) 05/08/17 13:23 Ur Phencyclidine Scrn Negative (NEGATIVE) 05/08/17 13:23 Ur Amphetamines Screen Negative (NEGATIVE) 05/08/17 13:23 U Benzodiazepines Scrn Negative (NEGATIVE) 05/08/17 13:23 U Oth Cocaine Metabols Negative (NEGATIVE) 05/08/17 13:23 U Cannabinoids Screen Negative (NEGATIVE) 05/08/17 13:23 Alcohol, Quantitative < 10 mg/dl (0-10) 05/08/17 13:11 - Hospital Course Hospital Course: As per admission: HPI: 51 year old male with past medical history of arthritis, chronic back pain and ETOH abuse presents with right forearm pain for about 1 week. Patient states that he has had multiple falls in the past on his right arm. He states that he is unable to use hand due to the pain it causes in the arm. Patient denies using anythign for the pain before coming into the ED. Patient is also complaining of increased urination. Patient denies having any dysuria or hematuria. Patient denies having any CP, SOB, abd pain, N/v/D/C, fevers or chills. 12 point ROS are negative except for the above mentioned Hospital Course: Patient was admitted with right forearm pain of 1 week's duration and history of alcohol abuse. On admission, patient was also noted to be an alcoholic with a history of major depressive disorder. Orthopedic consult was placed to Dr. Villa, who recommended the patient wear a forward arm sling and follow up outpatient. Due to the patient's refusal to wear the sling, a second opinion was placed to Dr. Trae Vázquez, who also recommended the patient wear the injured arm in a sling. Physical Therapy was consulted and recommended that the patient use a wheel chair as opposed to his usual walker, to avoid weight bearing on the injured right arm. The patient initially refused to use a wheel chair, as he preferred his walker. Psychiatry consult was placed to Dr. Daugherty, who provided recommendation for treatment of alcohol withdrawal and major depression in this patient. Patient remained clinically stable throughout the course of hospitalization and continued to refuse to wear his arm sling and remained uncooperative. Patient has been cleared by his healthcare team for discharge with use of wheelchair with discharge instruction to follow-up outpatient. Pertinent Study Result: Right Elbow X-ray (12/19/16): Limited assessment due to chronic dislocation and advanced degenerative changes. No definite evidence of acute displaced fracture. Re- demonstration of dislocation of the proximal radius head. If clinically warranted further assessment by CT may be obtained. Right Elbow X-ray (05/08/17): Posterior dislocation radial head, chronic. Minimally displaced fracture proximal radial diaphysis not evident on earlier examinations. Limited examination. Upper extremity CT (05/11/17): * Posterior dislocation of the radial head in relationship to the capitellum. Cortical irregularity and deformity of the radial head. 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 Mild distraction at the fracture site. * Prominent degenerative changes at the articulation of the distal humerus and ulna with joint space narrowing, subchondral sclerosis, subchondral cyst formation, and bony deformity and cortical irregularity at the level of the coronoid process as well as the anterior aspect of the distal medial humerus. This may be better evaluated with MRI for acute injury. * Rounded ossific density seen at the posterior aspect of the elbow joint space adjacent to the radial head which may represent large loose osteochondral body versus avulsion injury. * Additional questionable loose osteochondral bodies and/or avulsed fracture fragments at the anterior aspects of the elbow joint space. * Small to moderate elbow joint effusion. This is a brief summary of events. For a complete course, refer to the medical record Discharge Exam - Head Exam Head Exam: ATRAUMATIC - Eye Exam Eye Exam: EOMI, Normal appearance - ENT Exam ENT Exam: Mucous Membranes Moist, Normal Exam - Respiratory Exam Respiratory Exam: NORMAL BREATHING PATTERN Additional comments: Refused auscultation Pulmonary exam - Cardiovascular Exam Additional comments: Refused auscultation Cardiovascular exam - GI/Abdominal Exam Additional comments: Refused auscultation of abdominal exam - Extremities Exam Extremities exam: normal capillary refill, normal inspection - Neurological Exam Neurological exam: Alert - Psychiatric Exam Psychiatric exam: Agitated - Skin Skin Exam: Dry, Normal Color, Warm Discharge Plan - Follow Up Plan Condition: STABLE Disposition: HOME/ ROUTINE Instructions: How to Use a Sling (GEN), Shoulder Pain (GEN) Additional Instructions: Please discharge patient to appropriate skilled nursing with assistance with transportation as per Dr. Elizabeth Bowers Please provide proper ambulatory assistance to patient as per physical therapy Please follow-up with the [facility] within 7-10days ([phone]) Please return to the hospital if symptoms persist. Referrals: Clinic,Med Surg [Non-Staff] - Edna Chacon MD [Staff Provider] -
== END 2017-05-15 15:00 | disposition home or self-care (01) | DRG 239 ==
LOC: C.ER 08:38 → C.9E 12:10 → C.3T 13:53 → OBSVTOIN 05-09 10:14
PROVIDERS: ADMIT Family Medicine; ATTEND Family Medicine
PROC: HZ2ZZZZ Detoxification Services for Substance Abuse Treatment (ICD-10-PCS; principal; 2017-05-09)
PROC: HZ52ZZZ Individual Psychotherapy for Substance Abuse Treatment, Cognitive-Behavioral (ICD-10-PCS; 2017-05-09)
PROC: HZ59ZZZ Individual Psychotherapy for Substance Abuse Treatment, Supportive (ICD-10-PCS; 2017-05-09)
PROC: HZ56ZZZ Individual Psychotherapy for Substance Abuse Treatment, Psychoeducation (ICD-10-PCS; 2017-05-09)
DX: M84.433A Pathological fracture, right radius, initial encounter for fracture (principal); R45.851 Suicidal ideations; J44.9 Chronic obstructive pulmonary disease, unspecified; F33.1 Major depressive disorder, recurrent, moderate; F10.220 Alcohol dependence with intoxication, uncomplicated; Z76.5 Malingerer [conscious simulation]; I10 Essential (primary) hypertension; G89.29 Other chronic pain; M19.90 Unspecified osteoarthritis, unspecified site; Z59.0 Homelessness; F17.210 Nicotine dependence, cigarettes, uncomplicated; J45.909 Unspecified asthma, uncomplicated; Y90.0 Blood alcohol level of less than 20 mg/100 ml; R35.0 Frequency of micturition

== ENCOUNTER 2017-05-22 09:17 | Emergency (ER) | payer MEDICAID ==
[2017-05-22 09:22] VITALS: BMI 21.2
[2017-05-22 09:33] VITALS: RESP 18
--- NOTE | 2017-05-22 09:50 | C.PDOC ---
History Of Present Illness 51 year old male BIBA with complaints of being wet & cold from the rain, states he is dirty and wants to be cleaned/changed. He denies alcohol use tofau, or falls/injuries. He does c/o body aches. Time Seen by Provider: 05/22/17 09:24 Chief Complaint (Nursing): Medical Clearance History Per: Patient History/Exam Limitations: no limitations Severity: Mild Reports Recently: Seen In ED Additional History Per: EMS, Prior Records Past Medical History Reviewed: Historical Data, Nursing Documentation, Vital Signs Vital Signs: Last Vital Signs Temp 97.6 F 05/22/17 10:40 Pulse 90 05/22/17 10:40 Resp 18 05/22/17 10:40 BP 145/90 05/22/17 10:40 Pulse Ox 100 05/22/17 10:40 - Medical History PMH: Arthritis, Asthma, Back Problems, COPD, Dementia, Depression, Fractures, HTN, Hypothyroidism, Paranoia, Schizophrenia, Seizures Surgical History: Back Surgery (2010, spinal surgery) - [facility] Procedures ALCOHOL DETOXIFICATION (11/17/14) DETOXIFICATION SERVICES FOR SUBSTANCE ABUSE TREATMENT (05/09/17) INDIV PSYCHOTHERAPY FOR SUBSTANCE ABUSE TREATMENT, SUPPORT (05/09/17) INDIV PSYCHOTHERAPY FOR SUBSTANCE ABUSE, COGNITIV BEHAVIORAL (05/09/17) INDIV PSYCHOTHERAPY FOR SUBSTANCE ABUSE, PSYCHOEDUCATION (05/09/17) INJECT/INFUSE NEC (01/09/15) PSYCHIA INTERV/EVAL NEC (02/25/14) TETANUS TOXOID ADMINIST (12/18/14) VENOUS CATHETERIZATION NEC (11/29/14) Family History: States: No Known Family Hx - Social History Hx Tobacco Use: Yes Hx Alcohol Use: Yes Hx Substance Use: No - Immunization History Hx Tetanus Toxoid Vaccination: Yes (12/18/14) Hx Influenza Vaccination: No Hx Pneumococcal Vaccination: No Review Of Systems Except As Marked, All Systems Reviewed And Found Negative. Constitutional: Negative for: Fever, Chills Cardiovascular: Negative for: Chest Pain, Palpitations Respiratory: Negative for: Cough, Shortness of Breath Gastrointestinal: Negative for: Nausea, Vomiting, Abdominal Pain, Diarrhea Musculoskeletal: Positive for: Other (chronic body aches, dirty, wet, cold) Physical Exam - Physical Exam Appears: Non-toxic, No Acute Distress, Unkempt, Other (malodorous) Skin: Normal Color, Warm, Dry Head: Atraumatic, Normacephalic, Other (chronic eschar on scalp) Eye(s): bilateral: Normal Inspection Oral Mucosa: Moist Neck: Supple Chest: Symmetrical, No Tenderness Cardiovascular: Rhythm Regular Respiratory: Normal Breath Sounds, No Rales, No Rhonchi, No Wheezing Extremity: Normal ROM, No Calf Tenderness, No Deformity, No Swelling, Other ( legs covered in feces) Neurological/Psych: Oriented x3 ED Course And Treatment O2 Sat by Pulse Oximetry: 95 (room air ) Pulse Ox Interpretation: Normal Progress Note: Patient given PO Tylenol for pain. Patient cleaned & given clean clothes by nurse. He was discharge and instructed to follow up with PMD/ clinic in 1-2 days. He understands he should return to ED if he has any concerning symptoms. Disposition Counseled Patient/Family Regarding: Diagnosis, Need For Followup - Disposition Referrals: [facility] [Outside] Disposition: HOME/ ROUTINE Disposition Time: 10:20 Condition: STABLE Forms: [facility] (Grenadian), General Discharge Instructions Print Language: DANISH - POA Present On Arrival: None - Clinical Impression Clinical Impression: Homelessness, Body aches, Dirty living conditions - Scribe Statement The provider has reviewed the documentation as recorded by the Scribe Amy Mccauley All medical record entries made by the Scribe were at my direction and personally dictated by me. I have reviewed the chart and agree that the record accurately reflects my personal performance of the history, physical exam, medical decision making, and the department course for this patient. I have also personally directed, reviewed, and agree with the discharge instructions and disposition.
[2017-05-22 10:49] VITALS: BP 145/90; PULSE 90; TEMP 97.6
[2017-05-25 10:03] VITALS: O2SAT 95
== END 2017-05-22 10:45 | disposition home or self-care (01) ==
LOC: C.ER 09:17
DX: R52 Pain, unspecified (principal); Z59.0 Homelessness

== ENCOUNTER 2017-05-24 16:10 | Emergency (ER) | payer MEDICAID ==
[2017-05-24 16:11] VITALS: BMI 21.2
[2017-05-24 17:21] VITALS: BP 126/79; PULSE 99; RESP 16; TEMP 97.2; O2SAT 96
--- NOTE | 2017-05-24 18:26 | C.PDOC ---
History Of Present Illness 51 yr old male presents to the ER intoxicated. Patient is very well known to the ER for intoxication and malingering, with multiple ER visits. ROS is unable to be obtained due to intoxication. Time Seen by Provider: 05/24/17 18:00 Chief Complaint (Nursing): Substance Abuse History Per: Patient History/Exam Limitations: intoxication Onset/Duration Of Symptoms: Persistent Modifying Factor(s): Alcohol Past Medical History Reviewed: Historical Data, Nursing Documentation, Vital Signs Vital Signs: Last Vital Signs Temp 97.2 F L 05/24/17 17:19 Pulse 99 H 05/24/17 17:19 Resp 16 05/24/17 17:19 BP 126/79 05/24/17 17:19 Pulse Ox 96 05/24/17 18:28 - Medical History PMH: Arthritis, Asthma, Back Problems, COPD, Dementia, Depression, Fractures, HTN, Hypothyroidism, Paranoia, Schizophrenia, Seizures Surgical History: Back Surgery (2010, spinal surgery) - [facility] Procedures ALCOHOL DETOXIFICATION (11/17/14) DETOXIFICATION SERVICES FOR SUBSTANCE ABUSE TREATMENT (05/09/17) INDIV PSYCHOTHERAPY FOR SUBSTANCE ABUSE TREATMENT, SUPPORT (05/09/17) INDIV PSYCHOTHERAPY FOR SUBSTANCE ABUSE, COGNITIV BEHAVIORAL (05/09/17) INDIV PSYCHOTHERAPY FOR SUBSTANCE ABUSE, PSYCHOEDUCATION (05/09/17) INJECT/INFUSE NEC (01/09/15) PSYCHIA INTERV/EVAL NEC (02/25/14) TETANUS TOXOID ADMINIST (12/18/14) VENOUS CATHETERIZATION NEC (11/29/14) Family History: States: No Known Family Hx - Social History Hx Tobacco Use: Yes Hx Alcohol Use: Yes Hx Substance Use: No - Immunization History Hx Tetanus Toxoid Vaccination: Yes (12/18/14) Hx Influenza Vaccination: No Hx Pneumococcal Vaccination: No Review Of Systems Except As Marked, All Systems Reviewed And Found Negative. Constitutional: Negative for: Fever Cardiovascular: Negative for: Chest Pain Respiratory: Negative for: Shortness of Breath Gastrointestinal: Negative for: Nausea, Vomiting Neurological: Negative for: Weakness, Numbness, Headache Physical Exam - Physical Exam Appears: Non-toxic, No Acute Distress, Unkempt Skin: Warm, Dry, No Rash Head: Atraumatic, Normacephalic Chest: Symmetrical, No Tenderness Cardiovascular: Rhythm Regular, No Murmur Respiratory: Normal Breath Sounds, No Rales, No Rhonchi, No Wheezing Extremity: Normal ROM, No Swelling Neurological/Psych: Oriented x3, Normal Speech, Normal Motor ED Course And Treatment O2 Sat by Pulse Oximetry: 96 (RA) Pulse Ox Interpretation: Normal Disposition - Disposition Referrals: [facility] [Outside] [facility] [Outside] Disposition: HOME/ ROUTINE Disposition Time: 20:40 Condition: GOOD Additional Instructions: Thank you for letting us take care of you today. The emergency medical care you received today was directed at your acute symptoms. If you were prescribed any medication, please fill it and take as directed. It may take several days for your symptoms to resolve. Return to the Emergency Department if your symptoms worsen, do not improve, or if you have any other problems. Please contact your doctor or call one of the physicians/clinics you have been referred to that are listed on the Patient Visit Information form that is included in your discharge packet. Bring any paperwork you were given at discharge with you along with any medications you are taking to your follow up visit. Our treatment cannot replace ongoing medical care by a primary care provider (PCP) outside of the emergency department. Thank you for allowing the [facility] team to be part of your care today. Follow up in the clinic for outpatient care. Instructions: Abuse of Alcohol (ED) Forms: [employer] (Azeri) - Clinical Impression Clinical Impression: Alcohol abuse - Scribe Statement The provider has reviewed the documentation as recorded by the Prince Webb Provider Attestation: All medical record entries made by the Amadaibchucho were at my direction and personally dictated by me. I have reviewed the chart and agree that the record accurately reflects my personal performance of the history, physical exam, medical decision making, and the department course for this patient. I have also personally directed, reviewed, and agree with the discharge instructions and disposition.
== END 2017-05-24 22:00 | disposition home or self-care (01) ==
LOC: C.ER 16:10
DX: F10.120 Alcohol abuse with intoxication, uncomplicated (principal); Y90.9 Presence of alcohol in blood, level not specified

== ENCOUNTER 2017-05-26 14:07 | Emergency (ER) | payer MEDICAID | END 2017-05-26 19:30 | disposition home or self-care (01) | LOC: C.ER 14:07 ==

== ENCOUNTER 2017-07-05 01:08 | Emergency (ER) | payer MEDICAID ==
[2017-07-05 01:09] VITALS: BMI 25.0
[2017-07-05 01:41] VITALS: BP 129/76; PULSE 79; RESP 20; TEMP 97.6; O2SAT 96
--- NOTE | 2017-07-05 06:14 | C.PDOC ---
History Of Present Illness Pt returns to the ED again for malingering. Time Seen by Provider: 07/05/17 01:46 Chief Complaint (Nursing): Medical Clearance History Per: Patient, EMS Onset/Duration Of Symptoms: Other (tonight) Current Symptoms Are (Timing): Still Present Reports Recently: Seen In ED Additional History Per: Prior Records Past Medical History Reviewed: Historical Data, Nursing Documentation, Vital Signs Vital Signs: Last Vital Signs Temp 97.6 F 07/05/17 01:36 Pulse 79 07/05/17 01:36 Resp 20 07/05/17 01:36 BP 129/76 07/05/17 01:36 Pulse Ox 96 07/05/17 01:36 - Medical History PMH: Arthritis, Asthma, Back Problems, COPD, Dementia, Depression, Fractures, HTN, Hypothyroidism, Paranoia, Schizophrenia, Seizures Surgical History: Back Surgery (2010, spinal surgery) - [facility] Procedures ALCOHOL DETOXIFICATION (11/17/14) DETOXIFICATION SERVICES FOR SUBSTANCE ABUSE TREATMENT (05/09/17) INDIV PSYCHOTHERAPY FOR SUBSTANCE ABUSE TREATMENT, SUPPORT (05/09/17) INDIV PSYCHOTHERAPY FOR SUBSTANCE ABUSE, COGNITIV BEHAVIORAL (05/09/17) INDIV PSYCHOTHERAPY FOR SUBSTANCE ABUSE, PSYCHOEDUCATION (05/09/17) INJECT/INFUSE NEC (01/09/15) PSYCHIA INTERV/EVAL NEC (02/25/14) TETANUS TOXOID ADMINIST (12/18/14) VENOUS CATHETERIZATION NEC (11/29/14) Family History: States: Unknown Family Hx - Social History Hx Tobacco Use: Yes Hx Alcohol Use: Yes Hx Substance Use: No - Immunization History Hx Tetanus Toxoid Vaccination: Yes (12/18/14) Hx Influenza Vaccination: No Hx Pneumococcal Vaccination: No Review Of Systems Review Of Systems: ROS cannot be obtained secondary to pt's inabilty to answer questions. (Pt is uncooperative and cursing at staff) Physical Exam - Physical Exam Appears: Non-toxic, No Acute Distress Skin: Warm, Dry Head: Atraumatic Eye(s): bilateral: PERRL Neck: Normal ROM, No Midline Cervical Tenderness, No Step Off Deformity, Supple Cardiovascular: Rhythm Regular Respiratory: Normal Breath Sounds, No Accessory Muscle Use Gastrointestinal/Abdominal: Soft Neurological/Psych: Normal Motor ED Course And Treatment O2 Sat by Pulse Oximetry: 96 Pulse Ox Interpretation: Normal Disposition Counseled Patient/Family Regarding: Diagnosis, Need For Followup - Disposition Referrals: [facility] [Outside] Disposition: HOME/ ROUTINE Disposition Time: 06:13 Condition: IMPROVED - Clinical Impression Clinical Impression: Malingering
== END 2017-07-05 06:24 | disposition home or self-care (01) ==
LOC: C.ER 01:08
DX: Z76.5 Malingerer [conscious simulation] (principal)

== ENCOUNTER 2017-07-05 10:20 | Emergency (ER) | payer MEDICAID ==
[2017-07-05 10:25] VITALS: BMI 25.0
[2017-07-05 10:29] VITALS: RESP 18
--- NOTE | 2017-07-05 10:53 | C.PDOC ---
History Of Present Illness Patient is a 51 y/o male who presents to the ED with no medical complaints. Patient has a Hx of alcoholism, homelessness, and frequent visits to the ED; patient presents to ED 4-5x/day and was just discharged this morning. EMS picked up the patient this morning lying on the sidewalk after being discharged ; denies any emergencies, medical complaints, pain, headache, chest pain, SOB, fever, or chills. Admits to URI symptoms only. Patient is awake and alert, not intoxicated. Time Seen by Provider: 07/05/17 10:38 Chief Complaint (Nursing): Medical Clearance History Per: Patient History/Exam Limitations: no limitations Recent travel outside of the [place]: No Past Medical History Reviewed: Historical Data, Nursing Documentation, Vital Signs Vital Signs: Last Vital Signs Temp 98.0 F 07/05/17 10:28 Pulse 100 H 07/05/17 10:28 Resp 18 07/05/17 10:28 BP 128/79 07/05/17 10:28 Pulse Ox 99 07/05/17 10:53 - Medical History PMH: Arthritis, Asthma, Back Problems, COPD, Dementia, Depression, Fractures, HTN, Hypothyroidism, Paranoia, Schizophrenia, Seizures Denies: HIV, Chronic Kidney Disease, Sexually Transmitted Disease Surgical History: Back Surgery (2010, spinal surgery) - [facility] Procedures ALCOHOL DETOXIFICATION (11/17/14) DETOXIFICATION SERVICES FOR SUBSTANCE ABUSE TREATMENT (05/09/17) INDIV PSYCHOTHERAPY FOR SUBSTANCE ABUSE TREATMENT, SUPPORT (05/09/17) INDIV PSYCHOTHERAPY FOR SUBSTANCE ABUSE, COGNITIV BEHAVIORAL (05/09/17) INDIV PSYCHOTHERAPY FOR SUBSTANCE ABUSE, PSYCHOEDUCATION (05/09/17) INJECT/INFUSE NEC (01/09/15) PSYCHIA INTERV/EVAL NEC (02/25/14) TETANUS TOXOID ADMINIST (12/18/14) VENOUS CATHETERIZATION NEC (11/29/14) Family History: States: Unknown Family Hx - Social History Hx Tobacco Use: Yes Hx Alcohol Use: Yes Hx Substance Use: No - Immunization History Hx Tetanus Toxoid Vaccination: Yes (12/18/14) Hx Influenza Vaccination: No Hx Pneumococcal Vaccination: No Review Of Systems Constitutional: Negative for: Fever, Chills Cardiovascular: Negative for: Chest Pain Respiratory: Negative for: Shortness of Breath Gastrointestinal: Negative for: Nausea, Vomiting Physical Exam - Physical Exam Appears: Unkempt, Other (disheveled ) Skin: Normal Color, Warm, Dry Head: Laceration (lesion on top of head.) Oral Mucosa: Moist Chest: Symmetrical Cardiovascular: Rhythm Regular, No Murmur Respiratory: Normal Breath Sounds, No Rales, No Rhonchi, No Wheezing Gastrointestinal/Abdominal: Soft, No Tenderness Extremity: Other (extremities x4.) Neurological/Psych: Oriented x3 ED Course And Treatment O2 Sat by Pulse Oximetry: 99 Medical Decision Making Medical Decision Making: Patient is to be discharged due to no medical complaints at this time. Disposition - Disposition Disposition: HOME/ ROUTINE Disposition Time: 10:52 Condition: GUARDED Forms: General Discharge Instructions - Clinical Impression Clinical Impression: Homeless, Malingering - Scribe Statement The provider has reviewed the documentation as recorded by the Scribe Shanita Clinton All medical record entries made by the Scribe were at my direction and personally dictated by me. I have reviewed the chart and agree that the record accurately reflects my personal performance of the history, physical exam, medical decision making, and the department course for this patient. I have also personally directed, reviewed, and agree with the discharge instructions and disposition.
[2017-07-05 14:37] VITALS: BP 120/74; PULSE 98; TEMP 98; O2SAT 97
== END 2017-07-05 14:37 | disposition home or self-care (01) ==
LOC: C.ER 10:20
DX: Z76.5 Malingerer [conscious simulation] (principal); Z59.0 Homelessness

== ENCOUNTER 2017-07-05 23:43 | Observation (INO) | payer MEDICAID ==
[2017-07-05 23:44] VITALS: BMI 25.0
--- NOTE | 2017-07-06 00:13 | C.PDOC ---
History Of Present Illness 51 year old male brought in by ambulance for acute ETOH intoxication. Denies physical complaints at this time. Chief Complaint (Nursing): Substance Abuse History Per: Patient, EMS History/Exam Limitations: no limitations Onset/Duration Of Symptoms: Hrs Current Symptoms Are (Timing): Still Present Suicide/Self Injury Attempted (Context): None Modifying Factor(s): Alcohol Associated Symptoms: denies: Depression, Suicidal Thoughts, Suicidal Plan Involuntary Hold By: None Recent travel outside of the [place]: No Past Medical History Reviewed: Historical Data, Nursing Documentation, Vital Signs Vital Signs: Last Vital Signs Temp 97.5 F L 07/05/17 23:48 Pulse 95 H 07/05/17 23:48 Resp 16 07/05/17 23:48 BP 110/71 07/05/17 23:48 Pulse Ox 98 07/06/17 00:22 - Medical History PMH: Arthritis, Asthma, Back Problems, COPD, Dementia, Depression, Fractures, HTN, Hypothyroidism, Paranoia, Schizophrenia, Seizures Surgical History: Back Surgery (2010, spinal surgery) - [facility] Procedures ALCOHOL DETOXIFICATION (11/17/14) DETOXIFICATION SERVICES FOR SUBSTANCE ABUSE TREATMENT (05/09/17) INDIV PSYCHOTHERAPY FOR SUBSTANCE ABUSE TREATMENT, SUPPORT (05/09/17) INDIV PSYCHOTHERAPY FOR SUBSTANCE ABUSE, COGNITIV BEHAVIORAL (05/09/17) INDIV PSYCHOTHERAPY FOR SUBSTANCE ABUSE, PSYCHOEDUCATION (05/09/17) INJECT/INFUSE NEC (01/09/15) PSYCHIA INTERV/EVAL NEC (02/25/14) TETANUS TOXOID ADMINIST (12/18/14) VENOUS CATHETERIZATION NEC (11/29/14) Family History: States: Unknown Family Hx - Social History Hx Tobacco Use: Yes Hx Alcohol Use: Yes Hx Substance Use: No - Immunization History Hx Tetanus Toxoid Vaccination: Yes (12/18/14) Hx Influenza Vaccination: No Hx Pneumococcal Vaccination: No Review Of Systems Constitutional: Negative for: Fever, Chills Gastrointestinal: Negative for: Nausea, Vomiting, Diarrhea Physical Exam - Physical Exam Appears: Non-toxic, No Acute Distress Skin: Normal Color, Warm, Dry Head: Atraumatic, Normacephalic Oral Mucosa: Moist Chest: Symmetrical, No Tenderness Cardiovascular: Rhythm Regular, No Murmur Respiratory: Normal Breath Sounds, No Rales, No Rhonchi, No Wheezing Gastrointestinal/Abdominal: Soft, No Tenderness Neurological/Psych: Oriented x3, Normal Speech, Normal Cognition ED Course And Treatment O2 Sat by Pulse Oximetry: 98 (Room air) Pulse Ox Interpretation: Normal ED OBSERVATION Date of observation admission: 07/06/17 Time of observation admission: 00:00 - Observation admission statement Patient is being placed in observation because:: Acute ETOH intoxication - Goals of Observation Goals of observation are:: Sobriety Disposition Counseled Patient/Family Regarding: Diagnosis - Disposition Disposition: HOME/ ROUTINE Disposition Time: 05:18 Condition: STABLE - Clinical Impression Clinical Impression: Alcohol intoxication - Scribe Statement The provider has reviewed the documentation as recorded by the Scribe Sivakumar Mitchell All medical record entries made by the Amadaibchucho were at my direction and personally dictated by me. I have reviewed the chart and agree that the record accurately reflects my personal performance of the history, physical exam, medical decision making, and the department course for this patient. I have also personally directed, reviewed, and agree with the discharge instructions and disposition.
[2017-07-06 05:25] VITALS: BP 103/62; PULSE 85; RESP 20; TEMP 98.2; O2SAT 99
== END 2017-07-06 05:16 | disposition home or self-care (01) ==
LOC: C.ER 23:43 → C.9OBSV 07-06 00:18
PROVIDERS: ADMIT Emergency Medicine; ATTEND Emergency Medicine
DX: F10.129 Alcohol abuse with intoxication, unspecified (principal); F22 Delusional disorders; I10 Essential (primary) hypertension; Z87.891 Personal history of nicotine dependence; Y90.9 Presence of alcohol in blood, level not specified
CPT/HCPCS: 82948; 99284; G0378

== ENCOUNTER 2017-07-13 00:01 | Emergency (ER) | payer MEDICAID ==
[2017-07-13 00:01] VITALS: BMI 25.0
[2017-07-13 00:12] VITALS: O2SAT 98
--- NOTE | 2017-07-13 01:16 | C.PDOC ---
History Of Present Illness 51 year old male who was brought in by EMS after he was found sleeping in [facility]. Patient denies ETOH use today or physical complaints. Time Seen by Provider: 07/13/17 01:15 Chief Complaint (Nursing): Substance Abuse History Per: Patient, EMS History/Exam Limitations: no limitations Onset/Duration Of Symptoms: Hrs Current Symptoms Are (Timing): Still Present Suicide/Self Injury Attempted (Context): None Modifying Factor(s): None Associated Symptoms: denies: Depression, Suicidal Thoughts, Suicidal Plan Involuntary Hold By: None Recent travel outside of the [place]: No Past Medical History Reviewed: Historical Data, Nursing Documentation, Vital Signs Vital Signs: Last Vital Signs Temp 97.8 F 07/13/17 00:06 Pulse 88 07/13/17 00:06 Resp 18 07/13/17 00:06 BP 107/76 07/13/17 00:06 Pulse Ox 98 07/13/17 02:07 - Medical History PMH: Arthritis, Asthma, Back Problems, COPD, Dementia, Depression, Fractures, HTN, Hypothyroidism, Paranoia, Schizophrenia, Seizures Surgical History: Back Surgery (2010, spinal surgery) - [facility] Procedures ALCOHOL DETOXIFICATION (11/17/14) DETOXIFICATION SERVICES FOR SUBSTANCE ABUSE TREATMENT (05/09/17) INDIV PSYCHOTHERAPY FOR SUBSTANCE ABUSE TREATMENT, SUPPORT (05/09/17) INDIV PSYCHOTHERAPY FOR SUBSTANCE ABUSE, COGNITIV BEHAVIORAL (05/09/17) INDIV PSYCHOTHERAPY FOR SUBSTANCE ABUSE, PSYCHOEDUCATION (05/09/17) INJECT/INFUSE NEC (01/09/15) PSYCHIA INTERV/EVAL NEC (02/25/14) TETANUS TOXOID ADMINIST (12/18/14) VENOUS CATHETERIZATION NEC (11/29/14) Family History: States: Unknown Family Hx - Social History Hx Tobacco Use: Yes Hx Alcohol Use: Yes Hx Substance Use: No - Immunization History Hx Tetanus Toxoid Vaccination: Yes (12/18/14) Hx Influenza Vaccination: No Hx Pneumococcal Vaccination: No Review Of Systems Constitutional: Negative for: Fever, Chills Gastrointestinal: Negative for: Nausea, Vomiting, Diarrhea Physical Exam - Physical Exam Appears: Non-toxic, No Acute Distress Skin: Normal Color, Warm, Dry Head: Atraumatic, Normacephalic Oral Mucosa: Moist Chest: Symmetrical, No Tenderness Cardiovascular: Rhythm Regular Respiratory: Normal Breath Sounds, No Rales, No Rhonchi, No Wheezing Gastrointestinal/Abdominal: Soft, No Tenderness Neurological/Psych: Oriented x3, Normal Speech, Normal Cognition ED Course And Treatment O2 Sat by Pulse Oximetry: 98 (Room air) Pulse Ox Interpretation: Normal Medical Decision Making Medical Decision Making: malingering, not intox ok for d/c. Disposition Doctor Will See Patient In The: Office Counseled Patient/Family Regarding: Studies Performed, Diagnosis - Disposition Referrals: Alcoholics Anonymous [Outside] [facility] [Outside] [facility] [Outside] [facility] [Outside] [facility] [Outside] Disposition: HOME/ ROUTINE Disposition Time: 01:15 Condition: GOOD Additional Instructions: seek nightly [facility] placement as instructed many times. Forms: General Discharge Instructions, [facility] ([place]) - Clinical Impression Clinical Impression: Malingering, Homeless - Scribe Statement The provider has reviewed the documentation as recorded by the Scribchucho Mitchell All medical record entries made by the Scribe were at my direction and personally dictated by me. I have reviewed the chart and agree that the record accurately reflects my personal performance of the history, physical exam, medical decision making, and the department course for this patient. I have also personally directed, reviewed, and agree with the discharge instructions and disposition.
[2017-07-13 02:18] VITALS: BP 105/67; PULSE 85; RESP 16; TEMP 98
== END 2017-07-13 01:55 | disposition home or self-care (01) ==
LOC: C.ER 00:01
DX: Z76.5 Malingerer [conscious simulation] (principal); Z59.0 Homelessness

== ENCOUNTER 2017-07-13 18:42 | Emergency (ER) | payer MEDICAID ==
[2017-07-13 18:42] VITALS: BMI 25.0
== END 2017-07-13 20:12 | disposition left against medical advice (07) ==
LOC: C.ER 18:42
DX: R53.1 Weakness (principal); Z02.9 Encounter for administrative examinations, unspecified

== ENCOUNTER 2017-07-14 13:05 | Emergency (ER) | payer MEDICAID ==
[2017-07-14 13:05] VITALS: BMI 25.0
[2017-07-14 13:10] VITALS: BP 133/69; PULSE 70; RESP 18; TEMP 97; O2SAT 99
== END 2017-07-14 13:28 | disposition left against medical advice (07) ==
LOC: C.ER 13:05
DX: Z02.89 Encounter for other administrative examinations (principal); F10.10 Alcohol abuse, uncomplicated

== ENCOUNTER 2017-07-14 14:48 | Observation (INO) | payer MEDICAID ==
[2017-07-14 14:48] VITALS: BMI 25.0
[2017-07-14 14:57] VITALS: RESP 18
--- NOTE | 2017-07-14 15:41 | C.PDOC ---
History Of Present Illness 51 yr old male presents to the ER for alcohol intoxication. Patient is very well known to [facility] for alcohol abuse, with multiple visits in a single day. ROS is unable to be obtained. Time Seen by Provider: 07/14/17 15:23 Chief Complaint (Nursing): Medical Clearance History Per: EMS History/Exam Limitations: intoxication Onset/Duration Of Symptoms: Persistent Past Medical History Reviewed: Historical Data, Nursing Documentation, Vital Signs Vital Signs: Last Vital Signs Temp 98.2 F 07/14/17 20:50 Pulse 78 07/14/17 20:50 Resp 18 07/14/17 20:50 BP 120/77 07/14/17 20:50 Pulse Ox 98 07/14/17 20:50 - Medical History PMH: Arthritis, Asthma, Back Problems, COPD, Dementia, Depression, Fractures, HTN, Hypothyroidism, Paranoia, Schizophrenia, Seizures Surgical History: Back Surgery (2010, spinal surgery) - [facility] Procedures ALCOHOL DETOXIFICATION (11/17/14) DETOXIFICATION SERVICES FOR SUBSTANCE ABUSE TREATMENT (05/09/17) INDIV PSYCHOTHERAPY FOR SUBSTANCE ABUSE TREATMENT, SUPPORT (05/09/17) INDIV PSYCHOTHERAPY FOR SUBSTANCE ABUSE, COGNITIV BEHAVIORAL (05/09/17) INDIV PSYCHOTHERAPY FOR SUBSTANCE ABUSE, PSYCHOEDUCATION (05/09/17) INJECT/INFUSE NEC (01/09/15) PSYCHIA INTERV/EVAL NEC (02/25/14) TETANUS TOXOID ADMINIST (12/18/14) VENOUS CATHETERIZATION NEC (11/29/14) Family History: States: No Known Family Hx - Social History Hx Tobacco Use: Yes Hx Alcohol Use: Yes Hx Substance Use: No - Immunization History Hx Tetanus Toxoid Vaccination: Yes (12/18/14) Hx Influenza Vaccination: No Hx Pneumococcal Vaccination: No Review Of Systems Review Of Systems: ROS cannot be obtained secondary to pt's inabilty to answer questions. Physical Exam - Physical Exam Appears: Non-toxic, Unkempt Skin: Warm, Dry, No Rash Head: Atraumatic, Normacephalic Oral Mucosa: Moist Extremity: Normal ROM, No Swelling Neurological/Psych: Oriented x3, Normal Speech ED Course And Treatment O2 Sat by Pulse Oximetry: 100 (RA) Pulse Ox Interpretation: Normal Medical Decision Making Medical Decision Making: pt observed 6+ hours, clinically sober. stable for d.c ED OBSERVATION Date of observation admission: 07/14/17 Time of observation admission: 16:03 - Observation admission statement Patient is being placed in observation because:: acute alcohol intoxication - Goals of Observation Goals of observation are:: sobriety - Progress Note Progress Note: 07/14/17 16:12 patient is resting comfortably, vitals are stable. Disposition - Disposition Disposition: HOME/ ROUTINE Disposition Time: 08:00 Condition: STABLE - Clinical Impression Clinical Impression: Alcohol abuse - Scribe Statement The provider has reviewed the documentation as recorded by the Prince Webb Provider Attestation: All medical record entries made by the Prince were at my direction and personally dictated by me. I have reviewed the chart and agree that the record accurately reflects my personal performance of the history, physical exam, medical decision making, and the department course for this patient. I have also personally directed, reviewed, and agree with the discharge instructions and disposition.
[2017-07-14 21:38] VITALS: BP 120/77; PULSE 78; TEMP 98.2
[2017-07-14 23:38] VITALS: O2SAT 100
== END 2017-07-14 20:53 | disposition home or self-care (01) ==
LOC: C.ER 14:48 → C.9OBSV 16:03
PROVIDERS: ADMIT Student in an Organized Health Care Education/Training Program; ATTEND Student in an Organized Health Care Education/Training Program
DX: F10.129 Alcohol abuse with intoxication, unspecified (principal); F22 Delusional disorders; Z87.891 Personal history of nicotine dependence; Y90.9 Presence of alcohol in blood, level not specified

== ENCOUNTER 2017-07-16 18:11 | Emergency (ER) | payer MEDICAID ==
[2017-07-16 18:16] VITALS: BMI 23.4
[2017-07-16 18:22] VITALS: BP 123/79; PULSE 81; RESP 18; TEMP 98.4; O2SAT 97
--- NOTE | 2017-07-16 19:36 | C.PDOC ---
History Of Present Illness 51 year old male who presents to the ER via EMS after patient threw himself off his wheelchair in [facility]. Patient has no physical complaints at this time. Chief Complaint (Nursing): Medical Clearance History Per: Patient History/Exam Limitations: no limitations Onset/Duration Of Symptoms: Hrs Current Symptoms Are (Timing): Still Present Recent travel outside of the [place]: No Past Medical History Reviewed: Historical Data, Nursing Documentation, Vital Signs Vital Signs: Last Vital Signs Temp 98.4 F 07/16/17 18:21 Pulse 81 07/16/17 18:21 Resp 18 07/16/17 18:21 BP 123/79 07/16/17 18:21 Pulse Ox 97 07/16/17 19:36 - Medical History PMH: Arthritis, Asthma, Back Problems, COPD, Dementia, Depression, Fractures, HTN, Hypothyroidism, Paranoia, Schizophrenia, Seizures Surgical History: Back Surgery (2010, spinal surgery) - [facility] Procedures ALCOHOL DETOXIFICATION (11/17/14) DETOXIFICATION SERVICES FOR SUBSTANCE ABUSE TREATMENT (05/09/17) INDIV PSYCHOTHERAPY FOR SUBSTANCE ABUSE TREATMENT, SUPPORT (05/09/17) INDIV PSYCHOTHERAPY FOR SUBSTANCE ABUSE, COGNITIV BEHAVIORAL (05/09/17) INDIV PSYCHOTHERAPY FOR SUBSTANCE ABUSE, PSYCHOEDUCATION (05/09/17) INJECT/INFUSE NEC (01/09/15) PSYCHIA INTERV/EVAL NEC (02/25/14) TETANUS TOXOID ADMINIST (12/18/14) VENOUS CATHETERIZATION NEC (11/29/14) Family History: States: No Known Family Hx - Social History Hx Tobacco Use: Yes Hx Alcohol Use: Yes Hx Substance Use: No - Immunization History Hx Tetanus Toxoid Vaccination: Yes (12/18/14) Hx Influenza Vaccination: No Hx Pneumococcal Vaccination: No Review Of Systems Constitutional: Negative for: Fever, Chills Gastrointestinal: Negative for: Nausea, Vomiting, Diarrhea Physical Exam - Physical Exam Appears: Non-toxic, No Acute Distress, Other (ETOH on breath, no injury noted) Skin: Normal Color, Warm, Dry Head: Atraumatic, Normacephalic Oral Mucosa: Moist Chest: Symmetrical, No Tenderness Cardiovascular: Rhythm Regular, No Murmur Respiratory: Normal Breath Sounds, No Rales, No Rhonchi, No Wheezing Gastrointestinal/Abdominal: Soft, No Tenderness Neurological/Psych: Oriented x3, Normal Speech, Normal Cognition ED Course And Treatment O2 Sat by Pulse Oximetry: 97 (Room air) Pulse Ox Interpretation: Normal Medical Decision Making Medical Decision Making: typical public malingering does not want to be in ED, asks for immediate d/c to street. no new injuries. Disposition Doctor Will See Patient In The: Office Counseled Patient/Family Regarding: Studies Performed, Diagnosis - Disposition Referrals: Alcoholics Anonymous [Outside] [facility] [facility] [Outside] [facility] [Outside] [facility] [Outside] Disposition: HOME/ ROUTINE Disposition Time: 19:36 Condition: GOOD Additional Instructions: seek nightly Care Home Placement as instructed repeatedly. Instructions: Abuse of Alcohol (ED) Forms: [employer] ([place]ian) - Clinical Impression Clinical Impression: Homeless, Malingering - Scribe Statement The provider has reviewed the documentation as recorded by the Scribchucho Mitchell All medical record entries made by the Scribe were at my direction and personally dictated by me. I have reviewed the chart and agree that the record accurately reflects my personal performance of the history, physical exam, medical decision making, and the department course for this patient. I have also personally directed, reviewed, and agree with the discharge instructions and disposition.
== END 2017-07-16 19:49 | disposition home or self-care (01) ==
LOC: C.ER 18:11
DX: Z76.5 Malingerer [conscious simulation] (principal); Z59.0 Homelessness